=== PATIENT | male | born 1945 | race Caucasian/White ===

== ENCOUNTER → 2017-03-14 | Outpatient (CLI) | payer MEDICARE, OTHER ==
[2017-03-14 14:08] LABS: Basophils # (A) 0.1 k/uL (0-0.2); Basophils % (A) 1 %; CH 30.9; CHCM 33.2; Eosinophils # (A) 0.3 k/uL (0-0.7); Eosinophils % (A) 3 %; HCT 48.2 % (39.0-53.0); HDW 2.63; HGB 15.7 gm/dL (13.0-17.5); Luc # (Auto) 0.18; Luc % (Auto) 2; Lymphocytes # (A) 1.7 k/uL (1.0-4.8); Lymphocytes % (A) 16 %; MCH 30.3 pg (25.0-35.0); MCHC 32.5 g/dL (31.0-37.0); MCV 93.3 fL (80.0-100.0); Mean Platelet Volume 7.1; Monocytes # (A) 0.6 k/uL (0-1.0); Monocytes % (A) 5 %; Neutrophils # (A) 7.9 k/uL (1.3-7.7); Neutrophils % (A) 73 %; RBC 5.17 m/uL (4.30-5.90); RDW 14.7 % (11.5-15.5); WBC 10.8 k/uL (3.8-10.6); WBC (Perox) 10.38
[2017-03-14 14:17] LABS: ALT 43 U/L (21-72); AST 22 U/L (17-59); C Reactive Protein <5.0 mg/L (<10.0); Cholesterol 110 mg/dL (<200); Creatine Kinase 55 U/L (55-170); HDL Cholesterol 65 mg/dL (40-60); Non-African American GFR(MDRD) >60 (>60 ml/min/1.73 sqM); Triglycerides 53 mg/dL (<150)
[2017-03-14 15:25] LABS: Erythrocyte Sedimentation Rate 8 mm/hr (0-15)
== END | disposition home or self-care (01) ==
LOC: LABWHC1 13:48
PROVIDERS: ATTEND Internal Medicine Rheumatology
DX: M06.9 Rheumatoid arthritis, unspecified (principal); E78.5 Hyperlipidemia, unspecified
CPT/HCPCS: 36415; 80061; 82550; 82565; 84450; 84460; 85025; 85652; 86140

== ENCOUNTER 2017-04-21 13:51 | Emergency (ER) | payer MEDICARE, OTHER ==
[2017-04-21] MEDS ORDERED: SODIUM CHLORIDE 0.9% 500 ML IV ONE (14:14)
--- NOTE | 2017-04-21 14:16 | ED ---
General Adult HPI - General Chief complaint: Altered Mental Status Stated complaint: Confusion/Weakness Time Seen by Provider: 04/21/17 14:00 Source: patient, family, RN notes reviewed Mode of arrival: wheelchair Limitations: no limitations - History of Present Illness Initial comments: This is a 71-year-old male who presents emergency Department with a past medical history significant for mini strokes. Patient comes in today because his states he has had forgetful over the last hour. Patient woke up at 1 PM and his asked him questions about 30 to do today he did not know what they're very do and then asked him questions about what they did yesterday and he couldn't remember. Patient currently can remember everything about yesterday and today. states there was no slurred speech that was no facial droop there was no focal weakness and he did not complain of any numbness. states he ambulated normally. Patient denies any pain or symptoms patient states he feels completely fine at this time. Patient denies headache patient denies numbness weakness. Patient denies chest pain palpitations difficulty breathing or shortness of breath per patient denies any recent fever chills or cough. Patient denies abdominal pain patient denies nausea vomiting diarrhea. Patient denies any back pain. Patient denies any recent injury or trauma. - Related Data Home Medications Medication Instructions Recorded Confirmed ALPRAZolam [Xanax] 0.25 mg PO DAILY PRN 04/21/17 04/21/17 Apixaban [Eliquis] 5 mg PO Q12H 04/21/17 04/21/17 Aspirin EC [Ecotrin Low Dose] 81 mg PO DAILY 04/21/17 04/21/17 Atorvastatin Calcium [Lipitor] 80 mg PO DAILY 04/21/17 04/21/17 DULoxetine HCL [Cymbalta] 60 mg PO DAILY 04/21/17 04/21/17 EPINEPHrine [Epipen 2-Dhaval] 0.3 mg IM ONCE PRN 04/21/17 04/21/17 Esomeprazole Magnesium [NexIUM] 40 mg PO DAILY 04/21/17 04/21/17 Ezetimibe [Zetia] 10 mg PO HS 04/21/17 04/21/17 Folic Acid 0.8 mg PO DAILY 04/21/17 04/21/17 Levothyroxine Sodium [Synthroid] 150 mcg PO DAILY 04/21/17 04/21/17 Methotrexate Sodium [Methotrexate] 7.5 mg PO TU 04/21/17 04/21/17 Metoprolol Tartrate [Lopressor] 25 mg PO HS 04/21/17 04/21/17 Montelukast [Singulair] 10 mg PO DAILY 04/21/17 04/21/17 Allergies Allergy/AdvReac Type Severity Reaction Status Date / Time etodolac Allergy Rash/Hives Verified 04/21/17 14:42 moxifloxacin [From Avelox] Allergy Rash/Hives Verified 04/21/17 14:42 Penicillins Allergy Rash/Hives Verified 04/21/17 14:42 lisinopril AdvReac Severe Verified 04/21/17 14:42 Decrease In Blood Pressure Review of Systems ROS Statement: Those systems with pertinent positive or pertinent negative responses have been documented in the HPI. ROS Other: All systems not noted in ROS Statement are negative. Past Medical History Past Medical History: Asthma, CVA/TIA, Hyperlipidemia, Hypertension, Osteoarthritis (OA), Thyroid Disorder History of Any Multi-Drug Resistant Organisms: None Reported Past Surgical History: Appendectomy, Orthopedic Surgery Past Psychological History: Anxiety Smoking Status: Never smoker Past Alcohol Use History: Occasional Past Drug Use History: None Reported General Exam - General Exam Comments Initial Comments: GENERAL: Patient is well-developed and well-nourished. Patient is nontoxic and well- hydrated and is in no acute distress. ENT: Neck is soft and supple. No significant lymphadenopathy is noted. Oropharynx is clear. Moist mucous membranes. Neck has full range of motion without eliciting any pain. EYES: The sclera were anicteric and conjunctiva were pink and moist. Extraocular movements were intact and pupils were equal round and reactive to light. Eyelids were unremarkable. PULMONARY: Unlabored respirations. Good breath sounds bilaterally. No audible rales rhonchi or wheezing was noted. CARDIOVASCULAR: There is a regular rate and rhythm without any murmurs gallops or rubs. ABDOMEN: Soft and nontender with normal bowel sounds. No palpable organomegaly was noted. There is no palpable pulsatile mass. SKIN: Skin is clear with no lesions or rashes and otherwise unremarkable. NEUROLOGIC: Patient is alert and oriented x3. Cranial nerves II through XII are grossly intact. Motor and sensory are also intact. Normal speech, volume and content. Symmetrical smile. MUSCULOSKELETAL: Normal extremities with adequate strength and full range of motion. No lower extremity swelling or edema. No calf tenderness. LYMPHATICS: No significant lymphadenopathy is noted PSYCHIATRIC: Normal psychiatric evaluation. Normal interpersonal interactions appears functionally intact in deals appropriately with others. No signs of depression. No signs of anxiety. Limitations: no limitations Course Vital Signs 04/21/17 04/21/17 04/21/17 13:54 14:20 15:00 Temperature 97.6 F 97.7 F 97.7 F Pulse Rate 68 73 64 Respiratory 18 16 16 Rate Blood Pressure 181/107 153/106 195/90 O2 Sat by Pulse 93 L 90 L 96 Oximetry 04/21/17 16:00 Temperature 97.8 F Pulse Rate 64 Respiratory 16 Rate Blood Pressure 156/93 O2 Sat by Pulse 95 Oximetry Medical Decision Making - Medical Decision Making EKG shows him at 66 bpm NC interval is 130 QRS is 90 QT interval 418 QTC is 438. Patient's EKG shows no ST segment elevation or depression no T-wave abnormalities are noted. CT of the brain shows no acute abnormality - Lab Data Result diagrams: 04/21/17 14:20 04/21/17 14:20 Lab Results 04/21/17 04/21/17 04/21/17 Range/Units 14:20 14:20 14:20 WBC 10.9 H (3.8-10.6) k/uL RBC 5.82 (4.30-5.90) m/uL Hgb 17.5 (13.0-17.5) gm/dL Hct 53.7 H (39.0-53.0) % MCV 92.3 (80.0-100.0) fL MCH 30.1 (25.0-35.0) pg MCHC 32.6 (31.0-37.0) g/dL RDW 15.9 H (11.5-15.5) % Plt Count 241 (150-450) k/uL Neutrophils % 69 % Lymphocytes % 19 % Monocytes % 5 % Eosinophils % 3 % Basophils % 1 % Neutrophils # 7.5 (1.3-7.7) k/uL Lymphocytes # 2.1 (1.0-4.8) k/uL Monocytes # 0.6 (0-1.0) k/uL Eosinophils # 0.4 (0-0.7) k/uL Basophils # 0.1 (0-0.2) k/uL PT (9.0-12.0) sec INR (<1.2) APTT (22.0-30.0) sec Sodium 139 (137-145) mmol/L Potassium 4.3 (3.5-5.1) mmol/L Chloride 105 (98-107) mmol/L Carbon Dioxide 25 (22-30) mmol/L Anion Gap 9 mmol/L BUN 14 (9-20) mg/dL Creatinine 1.00 (0.66-1.25) mg/dL Est GFR (MDRD) Af Amer >60 (>60 ml/min/1.73 sqM) Est GFR (MDRD) Non-Af >60 (>60 ml/min/1.73 sqM) Glucose 109 H (74-99) mg/dL POC Glucose (mg/dL) (75-99) mg/dL POC Glu Extract Operator ID Calcium 9.1 (8.4-10.2) mg/dL Total Bilirubin 0.7 (0.2-1.3) mg/dL AST 28 (17-59) U/L ALT 47 (21-72) U/L Alkaline Phosphatase 86 (38-126) U/L Total Creatine Kinase 47 L (55-170) U/L CK-MB (CK-2) 1.7 (0.0-2.4) ng/mL CK-MB (CK-2) Rel Index 3.6 Troponin I <0.012 (0.000-0.034) ng/mL Total Protein 6.4 (6.3-8.2) g/dL Albumin 3.6 (3.5-5.0) g/dL Urine Color Urine Appearance (Clear) Urine pH (5.0-8.0) Ur Specific [place] (1.001-1.035) Urine Protein (Negative) Urine Glucose (UA) (Negative) Urine Ketones (Negative) Urine Blood (Negative) Urine Nitrite (Negative) Urine Bilirubin (Negative) Urine Urobilinogen (<2.0) mg/dL Ur Leukocyte Esterase (Negative) Urine RBC (0-5) /hpf Urine WBC (0-5) /hpf Amorphous Sediment (None) /hpf Urine Mucus (None) /hpf Urine Opiates Screen (NotDetected) Ur Oxycodone Screen (NotDetected) Urine Methadone Screen (NotDetected) Ur Propoxyphene Screen (NotDetected) Ur Barbiturates Screen (NotDetected) U Tricyclic Antidepress (NotDetected) Ur Phencyclidine Scrn (NotDetected) Ur Amphetamines Screen (NotDetected) U Methamphetamines Scrn (NotDetected) U Benzodiazepines Scrn (NotDetected) Urine Cocaine Screen (NotDetected) U Marijuana (THC) Screen (NotDetected) 04/21/17 04/21/17 04/21/17 Range/Units 14:20 14:27 16:05 WBC (3.8-10.6) k/uL RBC (4.30-5.90) m/uL Hgb (13.0-17.5) gm/dL Hct (39.0-53.0) % MCV (80.0-100.0) fL MCH (25.0-35.0) pg MCHC (31.0-37.0) g/dL RDW (11.5-15.5) % Plt Count (150-450) k/uL Neutrophils % % Lymphocytes % % Monocytes % % Eosinophils % % Basophils % % Neutrophils # (1.3-7.7) k/uL Lymphocytes # (1.0-4.8) k/uL Monocytes # (0-1.0) k/uL Eosinophils # (0-0.7) k/uL Basophils # (0-0.2) k/uL PT 10.9 (9.0-12.0) sec INR 1.1 (<1.2) APTT 23.4 (22.0-30.0) sec Sodium (137-145) mmol/L Potassium (3.5-5.1) mmol/L Chloride (98-107) mmol/L Carbon Dioxide (22-30) mmol/L Anion Gap mmol/L BUN (9-20) mg/dL Creatinine (0.66-1.25) mg/dL Est GFR (MDRD) Af Amer (>60 ml/min/1.73 sqM) Est GFR (MDRD) Non-Af (>60 ml/min/1.73 sqM) Glucose (74-99) mg/dL POC Glucose (mg/dL) 105 H (75-99) mg/dL POC Glu Extract Operator ID Zackery Hinds Calcium (8.4-10.2) mg/dL Total Bilirubin (0.2-1.3) mg/dL AST (17-59) U/L ALT (21-72) U/L Alkaline Phosphatase (38-126) U/L Total Creatine Kinase (55-170) U/L CK-MB (CK-2) (0.0-2.4) ng/mL CK-MB (CK-2) Rel Index Troponin I (0.000-0.034) ng/mL Total Protein (6.3-8.2) g/dL Albumin (3.5-5.0) g/dL Urine Color Yellow Urine Appearance Clear (Clear) Urine pH 6.5 (5.0-8.0) Ur Specific [place] 1.012 (1.001-1.035) Urine Protein Negative (Negative) Urine Glucose (UA) Negative (Negative) Urine Ketones Negative (Negative) Urine Blood Moderate H (Negative) Urine Nitrite Negative (Negative) Urine Bilirubin Negative (Negative) Urine Urobilinogen <2.0 (<2.0) mg/dL Ur Leukocyte Esterase Negative (Negative) Urine RBC >182 H (0-5) /hpf Urine WBC 2 (0-5) /hpf Amorphous Sediment Rare H (None) /hpf Urine Mucus Rare H (None) /hpf Urine Opiates Screen Not Detected (NotDetected) Ur Oxycodone Screen Not Detected (NotDetected) Urine Methadone Screen Not Detected (NotDetected) Ur Propoxyphene Screen Not Detected (NotDetected) Ur Barbiturates Screen Not Detected (NotDetected) U Tricyclic Antidepress Not Detected (NotDetected) Ur Phencyclidine Scrn Not Detected (NotDetected) Ur Amphetamines Screen Not Detected (NotDetected) U Methamphetamines Scrn Not Detected (NotDetected) U Benzodiazepines Scrn Not Detected (NotDetected) Urine Cocaine Screen Not Detected (NotDetected) U Marijuana (THC) Screen Not Detected (NotDetected) Disposition Clinical Impression: Transient global amnesia Disposition: HOME SELF-CARE Condition: Good Instructions: Transient Global Amnesia (ED) Referrals: Abdi Corona MD [Primary Care Provider] - 1-2 days Time of Disposition: 16:40
[2017-04-21 14:26] VITALS: RESP 16
[2017-04-21 14:29] LABS: Glucose,Whole Blood 105 mg/dL (75-99)
[2017-04-21 14:41] LABS: Basophils # (A) 0.1 k/uL (0-0.2); Basophils % (A) 1 %; CH 31.6; CHCM 34.4; Eosinophils # (A) 0.4 k/uL (0-0.7); Eosinophils % (A) 3 %; HCT 53.7 % (39.0-53.0); HDW 2.54; HGB 17.5 gm/dL (13.0-17.5); Luc # (Auto) 0.18; Luc % (Auto) 2; Lymphocytes # (A) 2.1 k/uL (1.0-4.8); Lymphocytes % (A) 19 %; MCH 30.1 pg (25.0-35.0); MCHC 32.6 g/dL (31.0-37.0); MCV 92.3 fL (80.0-100.0); Mean Platelet Volume 7.7; Monocytes # (A) 0.6 k/uL (0-1.0); Monocytes % (A) 5 %; Neutrophils # (A) 7.5 k/uL (1.3-7.7); Neutrophils % (A) 69 %; RBC 5.82 m/uL (4.30-5.90); RDW 15.9 % (11.5-15.5); WBC 10.9 k/uL (3.8-10.6); WBC (Perox) 10.54
[2017-04-21 14:45] LABS: Partial Thromboplastin Time 23.4 sec (22.0-30.0)
[2017-04-21 14:49] LABS: INR 1.1 (<1.2); Prothrombin Time 10.9 sec (9.0-12.0)
[2017-04-21 14:53] LABS: ALT 47 U/L (21-72); AST 28 U/L (17-59); Alkaline Phosphatase 86 U/L (38-126); Anion Gap 9 mmol/L; Blood Urea Nitrogen 14 mg/dL (9-20); Calcium 9.1 mg/dL (8.4-10.2); Carbon Dioxide 25 mmol/L (22-30); Chloride 105 mmol/L (98-107); Creatine Kinase 47 U/L (55-170); Glucose 109 mg/dL (74-99); Non-African American GFR(MDRD) >60 (>60 ml/min/1.73 sqM); Potassium 4.3 mmol/L (3.5-5.1); Sodium 139 mmol/L (137-145); Total Bilirubin 0.7 mg/dL (0.2-1.3); Total Protein 6.4 g/dL (6.3-8.2)
[2017-04-21 15:05] LABS: Creatine Kinase MB 1.7 ng/mL (0.0-2.4); Troponin I <0.012 ng/mL (0.000-0.034)
--- NOTE | 2017-04-21 15:08 | CT ---
EXAMINATION TYPE: CT brain wo con DATE OF EXAM: 04/21/2017 COMPARISON: NONE INDICATION: confusion DLP: 1085 mGycm, Automated exposure control for dose reduction was used. CONTRAST: None CT of the brain is performed utilizing 3 mm thick sections through the posterior fossa and 3 mm thick sections through the remaining calvarium. Study is performed within 24 hours of arrival to the hosp [facility]. No abnormal hyperdensity is present to suggest an acute intracranial hemorrhage. No mass lesion is evident. No acute infarcts are evident. Ventricles and sulci are appropriate for the patient age. Paranasal sinuses and mastoid air cells within the [id number] are clear. IMPRESSIONS: 1. Normal CT Brain
--- NOTE | 2017-04-21 15:19 | XR ---
EXAMINATION TYPE: XR chest 2V DATE OF EXAM: 04/21/2017 COMPARISON: NONE INDICATION: Altered mental status TECHNIQUE: Frontal and lateral views of the chest are obtained. FINDINGS: The heart size is normal. The pulmonary vasculature is normal. The lungs are clear. IMPRESSION: 1. No acute pulmonary process.
[2017-04-21 16:24] LABS: Amorphous Sediment,Urine Rare /hpf; Appearance,Urine Clear (Clear); Bilirubin,Urine Negative (Negative); Glucose,Urine (UA) Negative (Negative); Ketones,Urine Negative (Negative); Leukocyte Esterase,Urine Negative (Negative); Mucus,Urine Rare /hpf; Nitrite,Urine Negative (Negative); PH, Urine 6.5 (5.0-8.0); Particle Count 864; Protein,Urine Negative (Negative); RBC,Urine >182 /hpf (0-5); Specific Gravity,Urine 1.012 (1.001-1.035); UA Billing (MACRO vs. MICRO) MICRO; Urobilinogen,Urine <2.0 mg/dL (<2.0); WBC,Urine 2 /hpf (0-5)
[2017-04-21 16:59] VITALS: BP 175/94; PULSE 73; TEMP 97.6
== END 2017-04-21 16:50 | disposition home or self-care (01) ==
LOC: EC 13:51
DX: G45.4 Transient global amnesia (principal); J45.909 Unspecified asthma, uncomplicated; E78.5 Hyperlipidemia, unspecified; I10 Essential (primary) hypertension; M19.90 Unspecified osteoarthritis, unspecified site; E07.9 Disorder of thyroid, unspecified; F41.9 Anxiety disorder, unspecified; Z86.73 Personal history of transient ischemic attack (TIA), and cerebral infarction without residual deficits; Z79.01 Long term (current) use of anticoagulants; Z79.82 Long term (current) use of aspirin; Z79.899 Other long term (current) drug therapy; Z88.0 Allergy status to penicillin; Z88.1 Allergy status to other antibiotic agents; Z88.8 Allergy status to other drugs, medicaments and biological substances
CPT/HCPCS: 36415; 70450; 71020; 80053; 80306; 81001; 82550; 82553; 84484; 85025; 85610; 85730; 93005; 96360; 99285

== ENCOUNTER 2017-05-17 09:44 | Inpatient (IN) | payer MEDICARE, OTHER ==
[2017-05-17] MEDS ORDERED: ACETAMINOPHEN TAB 325 MG TAB PO PRN (11:40)
[2017-05-17] MEDS ORDERED: ONDANSETRON 4 MG/2 ML VIAL IVP PRN (11:40)
[2017-05-17] MEDS ORDERED: methylPREDNISolone SOD SUCCI 125 MG/2 ML VIAL IV SCH (12:00)
[2017-05-17] MEDS ORDERED: EPINEPHrine (Auto Inject) 0.3 MG/0.3 ML SYRINGE IM PRN (12:40)
[2017-05-17] MEDS ORDERED: ALBUTEROL NEBULIZED 2.5 MG/3 ML INHALATION PRN (12:40)
[2017-05-17] MEDS: LEVALBUTEROL NEB 1.25 MG/3 ML AMP INHALATION SCH ×3 (13:28→20:16)
--- NOTE | 2017-05-17 13:28 | XR ---
EXAMINATION TYPE: XR chest 2V DATE OF EXAM: 05/17/2017 COMPARISON: 05/17/2017 TECHNIQUE: PA and lateral views submitted. HISTORY: Follow-up pneumonia FINDINGS: The lungs are clear and there is no pneumothorax, pleural effusion, or focal pneumonia. Heart size stable. No failure. Biapical pleural thickening. IMPRESSION: 1. No acute process.
[2017-05-17 13:49] LABS: Basophils # (A) 0.2 k/uL (0-0.2); Basophils % (A) 2 %; CH 30.9; CHCM 31.7; Eosinophils # (A) 0.5 k/uL (0-0.7); Eosinophils % (A) 5 %; HCT 51.5 % (39.0-53.0); HDW 2.46; HGB 16.3 gm/dL (13.0-17.5); Luc # (Auto) 0.11; Luc % (Auto) 1; Lymphocytes # (A) 2.6 k/uL (1.0-4.8); Lymphocytes % (A) 26 %; MCH 30.9 pg (25.0-35.0); MCHC 31.7 g/dL (31.0-37.0); MCV 97.7 fL (80.0-100.0); Macrocytosis Slight; Mean Platelet Volume 7.1; Monocytes # (A) 0.5 k/uL (0-1.0); Monocytes % (A) 5 %; Neutrophils # (A) 6.3 k/uL (1.3-7.7); Neutrophils % (A) 62 %; RBC 5.27 m/uL (4.30-5.90); RDW 15.8 % (11.5-15.5); WBC 10.2 k/uL (3.8-10.6); WBC (Perox) 10.18
[2017-05-17 13:50] LABS: Calcium 9.8 mg/dL (8.4-10.2); Potassium 4.2 mmol/L (3.5-5.1); Total Bilirubin 0.9 mg/dL (0.2-1.3); Total Protein 6.5 g/dL (6.3-8.2)
--- NOTE | 2017-05-17 14:14 | US ---
EXAMINATION TYPE: US kidneys/renal and bladder DATE OF EXAM: 05/17/2017 COMPARISON: NONE CLINICAL HISTORY: Hematuria. EXAM MEASUREMENTS: Right Kidney: 11.4 x 5.8 x 5.8 cm Left Kidney: 11.1 x 5.2 x 6.0 cm Right Kidney: lateral cystic lesion seen = 1.0 x 1.3 x 0.9 cm. Hyperechoic cortical lesion, nonvascu lar = 0.6 x 0.8 x 0.6 cm Left Kidney: Echogenic focus seen with shadow in upper pole = 0.7 cm Bladder: Moderately distended Left Jet seen IMPRESSION: Nonobstructing 7 mm left renal calculus. The lesions involving the right kidney are indeterminate and could be correlated with CT scan for further evaluation. One of which may represent small angiomyoli andrez. Bladder is incompletely distended. Correlate for mild wall thickening and cystitis.
[2017-05-17] MEDS: APIXABAN 5 MG TAB PO SCH ×2 (14:20→21:03)
[2017-05-17] MEDS: AZITHROMYCIN 500 MG in SODIUM CHLORIDE 0.9% 250 ML IVPB SCH (14:21)
[2017-05-17] MEDS: 0.9% NACL WITH KCL 20 MEQ/L 1,000 ML IV SCH ×2 (14:24→18:12)
--- NOTE | 2017-05-17 17:02 | P.HPIM ---
History of Present Illness H&P Date: 05/17/17 Chief Complaint: Shortness of breath This is a 71 year old male who was directly admitted to the hospital on [address] Sandoval office for persistent asthma and pneumonia. He states he was seen in office on Saturday for shortness of breath, wheezing, and a "rattling " in his chest. He states that his symptoms did not resolve and presented back the office today. The patient was admitted for persistent asthma and pneumonia. Consults were placed for pulmonary to see the patient. The patient has a history of osteoarthritis, hypertension, hyperlipidemia, fibromyalgia, chronic lower back pain, asthma. He is a former smoker. The patient is ordering IV fluid hydration with 0.9 NS with 20KCL at 150cc/hr. He is receiving Solu-Medrol 80 mg IV push every six hours. He was started on Zithromax 500 mg IV piggyback every 24 hours and Rocephin 1 g IV piggyback every 24 hours. He has scheduled breathing treatment of Xopenex ordered. He is on a regular diet. Blood work and chest x-ray will be completed. The patient also states he had hematuria found on a urine sample at Dr Sandoval office. He has a script for a kidney ultrasound which the patient is able to complete during his admission to the hospital per the ultrasound department. Upon assessment and evaluation, the patient does not appear to be in any acute distress. His is at the bedside. He states he feels like his lungs are "junky" today. The patient does sound coarse throughout with some scattered wheezing. His oxygen saturation was 90% on room air. Spoke with nursing and patient will be placed on a nasal cannula. He denies any chest pain or pressure. He states he is tolerating food and fluids without nausea or vomiting. His blood pressure has been stable. He is afebrile at this time. Review of Systems Those systems with pertinent negative or pertinent positive responses have been documented in the HPI Past Medical History Past Medical History: Asthma, CVA/TIA, Hyperlipidemia, Hypertension, Osteoarthritis (OA), Pneumonia, Thyroid Disorder Additional Past Medical History / Comment(s): Caratid artery disease-had 2 TIAs during right caratid surgery plaque removal and then the artery occludded with a blood clot, L caratid artery has 30% occlusion, R face/ear cellulitis, hypothyroid, generalized arthritis, chronic low back pain with vertebral fracture, pericarditis in the 1970s History of Any Multi-Drug Resistant Organisms: None Reported Past Surgical History: Appendectomy, Orthopedic Surgery Additional Past Surgical History / Comment(s): R caratid endartectomy, R shoulder arthroscopy, L hand middle finger sx, colonoscopies, bilateral cataract removal with lens implants. Additional Past Anesthesia/Blood Transfusion Reaction / Comment(s): Blood pressure dropped during R caratid artery surgery-surgery was aborted and done 2 days later when pt's blood pressure stabilized. Smoking Status: Former smoker - Past Family History Mother Family Medical History: Hypertension, Osteoarthritis (OA) Additional Family Medical History / Comment(s): Mother is 92 yrs old. Father Family Medical History: CVA/TIA, Myocardial Infarction (CO) Additional Family Medical History / Comment(s): Father had a CVA and multiple MIs. He from a CO at the age of 88yrs. Medications and Allergies Home Medications Medication Instructions Recorded Confirmed Type ALPRAZolam [Xanax] 0.25 mg PO DAILY PRN 04/21/17 05/17/17 History Apixaban [Eliquis] 5 mg PO Q12H 04/21/17 05/17/17 History Aspirin EC [Ecotrin Low Dose] 81 mg PO DAILY 04/21/17 05/17/17 History Atorvastatin Calcium [Lipitor] 80 mg PO DAILY 04/21/17 05/17/17 History DULoxetine HCL [Cymbalta] 60 mg PO QAM 04/21/17 05/17/17 History EPINEPHrine [Epipen 2-Dhaval] 0.3 mg IM ONCE PRN 04/21/17 05/17/17 History Esomeprazole Magnesium [NexIUM] 40 mg PO DAILY 04/21/17 05/17/17 History Ezetimibe [Zetia] 10 mg PO HS 04/21/17 05/17/17 History Folic Acid 0.8 mg PO DAILY 04/21/17 05/17/17 History Levothyroxine Sodium [Synthroid] 150 mcg PO DAILY 04/21/17 05/17/17 History Methotrexate Sodium [Methotrexate] 7.5 mg PO TU 04/21/17 05/17/17 History Metoprolol Tartrate [Lopressor] 25 mg PO DAILY 04/21/17 05/17/17 History Montelukast [Singulair] 10 mg PO DAILY 04/21/17 05/17/17 History DULoxetine HCL [Cymbalta] 30 mg PO HS 05/17/17 05/17/17 History Levalbuterol Nebulized [Xopenex 1.25 mg INHALATION RT-TID PRN 05/17/17 05/17/17 History Nebulized] Levalbuterol Tartrate [Xopenex Hfa 1 - 2 puff INHALATION RT-QID PRN 05/17/17 History Inhaler] Tamsulosin HCl [Flomax] 0.4 mg PO DAILY 05/17/17 05/17/17 History Allergies Allergy/AdvReac Type Severity Reaction Status Date / Time etodolac Allergy Rash/Hives Verified 05/17/17 12:14 moxifloxacin [From Avelox] Allergy Rash/Hives Verified 05/17/17 12:14 Penicillins Allergy Rash/Hives Verified 05/17/17 12:14 lisinopril AdvReac Severe Verified 05/17/17 12:14 Decrease In Blood Pressure Physical Exam Vitals: Vital Signs Temp Pulse Pulse Resp BP Pulse Ox 05/17/17 16:03 88 05/17/17 15:58 88 91 L 05/17/17 15:00 98.1 F 70 16 120/74 92 L 05/17/17 12:15 75 16 05/17/17 11:56 97.3 F L 75 16 113/76 91 L Intake and Output 05/17/17 05/17/17 05/17/17 06:59 14:59 22:59 Intake Total 780 Balance 780 Intake: Oral 780 Other: Voiding Method Toilet # Voids 1 Weight 87.5 kg Patient Weight 05/18/17 06:59 Weight 87.5 kg GENERAL: Alert and oriented. Pleasant and cooperative. at the bedside. RESPIRATORY: Lung sounds are coursed throughout with scattered wheezing No use of accessory muscles. Patients oxygen saturation is 90%. Nasal cannula to be applied CARDIOVASCULAR: S1 and S2 noted. No JVD noted. EXTREMITIES: No edema noted. Palpable pedal pulses +2. ABDOMEN: No distention noted. Abdomen soft and round. Normal active bowel sounds auscultated 4 quadrants. No pain or tenderness noted upon palpation. Results CBC & Chem 7: 05/17/17 13:23 05/17/17 13:23 Labs: Abnormal Lab Results - Last 24 Hours (Table) 05/17/17 05/17/17 Range/Units 13:23 13:23 RDW 15.8 H (11.5-15.5) % Creatinine 1.69 H (0.66-1.25) mg/dL Glucose 101 H (74-99) mg/dL ALT 78 H (21-72) U/L Thrombosis Risk Factor Assmnt - Choose All That Apply Any of the Below Risk Factors Present?: Yes Each Factor Represents 1 point: Obesity (BMI >25), Serious lung disease incl. pneumonia (< 1month) Other Risk Factors: Yes Each Risk Factor Represents 2 Points: Age 61-74 years Other congenital or acquired thrombophilia - If yes, enter type in comment: No Thrombosis Risk Factor Assessment Total Risk Factor Score: 4 Thrombosis Risk Factor Assessment Level: Moderate Risk Assessment and Plan Plan: ASSESSMENT: -Pneumonia, present on admission, sputum culture ordered -Acute on chronic asthma -Shortness of breath and coughing, related to pneumonia and asthma -Hematuria, present on admission, found on recent urinalysis in the outpatient setting, ultrasound pending -Acute kidney injury, present on admission, creatinine on admission is 1.69. Patients baseline ranges from 0.8-1.0 -Nicotine dependence in remission. Patient is a former cigarette smoker. -History of TIA -History of right carotid endarterectomy -Essential Hypertension -Hyperlipidemia -Hypothyroidism -Osteoarthritis -Obesity, BMI 31.1 PLAN: -Pulmonary on consult. Appreciate recommendations and input -Continue breathing treatments -Continue IV steroids: 80mg every 6 hours -Chest x-ray and labs in a.m. -Continue IV antibiotics: Azithromycin and ceftriaxone -Await sputum culture results -Continue IV fluid at 150 mL an hour -Monitor BUN/Cr. Repeat labs in the AM. If creatinine remains elevated, consider nephrology consult -Resume home meds as appropriate -Monitor labs -GI prophylaxis: Protonix 40 mg by mouth daily -DVT prophylaxis: Patient takes Eliquis -Monitor vital signs and address as appropriate The above impression and plan of care have been discussed and directed by signing physician. Roberta Moreno, nurse practitioner, acting as scribe for signing physician.
--- NOTE | 2017-05-17 17:50 | P.CNPUL ---
History of Present Illness Consult date: 05/17/17 Requesting physician: Abdi Corona Reason for consult: pneumonia Chief complaint: Nonproductive cough and shortness of breath. History of present illness: This is a 71-year-old white male was primarily a patient of Dr. Menendez, patient is known to have history of asthma, used to be a smoker many years ago, but quit. Patient was diagnosed as having intermittent episodes of asthma exacerbations by his primary care physician. Maintained on bronchodilators, also maintained on an nebulizer machine at home. Patient is not prednisone dependent. He saw Dr. Corona today with symptoms of cough, unable to clear his sputum, and he has intermittent rattling sensation in the chest and wheezing. Apparently the patient has been on some sort of treatment on outpatient basis, but was not getting much improvement, hence Dr. Corona decided to admit him today. Patient did have diffuse rhonchi and wheezes on physical examination, mostly on the right side, and his chest x-ray although read normal by the radiologist, is strongly suspicious for a limited infiltrate in the right middle lobe. Patient denies any fever, no chills, no hemoptysis, no chest pain. His oxygen saturation on room air was marginal between 91-92%. After evaluating the patient, I recommended that we keep the patient on his present antibiotics including Rocephin and Zithromax will keep him on Xopenex, and I will also recommend Solu-Medrol 60 mg IV push every 6 hours. If the patient doesn't improve much over the next couple of days, bronchoscopy will have to be considered. Labs were noted to be relatively unremarkable except for elevated creatinine of 1.69. Patient denies any headaches no blurred vision no dizziness. No chest pain but he feels a rattling sensation in the chest, no nausea no vomiting no melena no hematemesis is no dysuria and no frequency no urgency. No aches and pains. Review of Systems 14 point review of systems were obtained, please refer to pertinent positives in the HPI otherwise remaining systems are negative. Past Medical History Past Medical History: Asthma, CVA/TIA, Hyperlipidemia, Hypertension, Osteoarthritis (OA), Pneumonia, Thyroid Disorder Additional Past Medical History / Comment(s): Caratid artery disease-had 2 TIAs during right caratid surgery plaque removal and then the artery occludded with a blood clot, L caratid artery has 30% occlusion, R face/ear cellulitis, hypothyroid, generalized arthritis, chronic low back pain with vertebral fracture, pericarditis in the 1970s History of Any Multi-Drug Resistant Organisms: None Reported Past Surgical History: Appendectomy, Orthopedic Surgery Additional Past Surgical History / Comment(s): R caratid endartectomy, R shoulder arthroscopy, L hand middle finger sx, colonoscopies, bilateral cataract removal with lens implants. Additional Past Anesthesia/Blood Transfusion Reaction / Comment(s): Blood pressure dropped during R caratid artery surgery-surgery was aborted and done 2 days later when pt's blood pressure stabilized. Smoking Status: Former smoker - Past Family History Mother Family Medical History: Hypertension, Osteoarthritis (OA) Additional Family Medical History / Comment(s): Mother is 92 yrs old. Father Family Medical History: CVA/TIA, Myocardial Infarction (ID) Additional Family Medical History / Comment(s): Father had a CVA and multiple MIs. He from a ID at the age of 88yrs. Medications and Allergies Home Medications Medication Instructions Recorded Confirmed Type ALPRAZolam [Xanax] 0.25 mg PO DAILY PRN 04/21/17 05/17/17 History Apixaban [Eliquis] 5 mg PO Q12H 04/21/17 05/17/17 History Aspirin EC [Ecotrin Low Dose] 81 mg PO DAILY 04/21/17 05/17/17 History Atorvastatin Calcium [Lipitor] 80 mg PO DAILY 04/21/17 05/17/17 History DULoxetine HCL [Cymbalta] 60 mg PO QAM 04/21/17 05/17/17 History EPINEPHrine [Epipen 2-Dhaval] 0.3 mg IM ONCE PRN 04/21/17 05/17/17 History Esomeprazole Magnesium [NexIUM] 40 mg PO DAILY 04/21/17 05/17/17 History Ezetimibe [Zetia] 10 mg PO HS 04/21/17 05/17/17 History Folic Acid 0.8 mg PO DAILY 04/21/17 05/17/17 History Levothyroxine Sodium [Synthroid] 150 mcg PO DAILY 04/21/17 05/17/17 History Methotrexate Sodium [Methotrexate] 7.5 mg PO TU 04/21/17 05/17/17 History Metoprolol Tartrate [Lopressor] 25 mg PO DAILY 04/21/17 05/17/17 History Montelukast [Singulair] 10 mg PO DAILY 04/21/17 05/17/17 History DULoxetine HCL [Cymbalta] 30 mg PO HS 05/17/17 05/17/17 History Levalbuterol Nebulized [Xopenex 1.25 mg INHALATION RT-TID PRN 05/17/17 05/17/17 History Nebulized] Levalbuterol Tartrate [Xopenex Hfa 1 - 2 puff INHALATION RT-QID PRN 05/17/17 History Inhaler] Tamsulosin HCl [Flomax] 0.4 mg PO DAILY 05/17/17 05/17/17 History Allergies Allergy/AdvReac Type Severity Reaction Status Date / Time etodolac Allergy Rash/Hives Verified 05/17/17 12:14 moxifloxacin [From Avelox] Allergy Rash/Hives Verified 05/17/17 12:14 Penicillins Allergy Rash/Hives Verified 05/17/17 12:14 lisinopril AdvReac Severe Verified 05/17/17 12:14 Decrease In Blood Pressure Physical Exam Vitals: Vital Signs Temp Pulse Pulse Resp BP Pulse Ox 05/17/17 16:03 88 05/17/17 15:58 88 91 L 05/17/17 15:00 98.1 F 70 16 120/74 92 L 05/17/17 12:15 75 16 05/17/17 11:56 97.3 F L 75 16 113/76 91 L Intake and Output 05/17/17 05/17/17 05/17/17 06:59 14:59 22:59 Intake Total 780 Balance 780 Intake: Oral 780 Other: Voiding Method Toilet # Voids 1 Weight 87.5 kg Patient Weight 05/18/17 06:59 Weight 87.5 kg Physical Exam: Revealed a 71-year-old white male in no form of respiratory distress, comfortable in bed. Quite pleasant Eyes: PERRLA, EOMI, no icterus. Head: Normocephalic, atraumatic, HEENT:[Neck is supple.] [No neck masses.] [No thyromegaly.] [No JVD.] Throat is clear, mucous membranes are intact. Including mouth, nose, and throat. Chest: [Rhonchi and wheezes noted bilaterally more so on the right side and more so on forced expiratory maneuver..] Cardiac Exam: [Normal S1 and S2, no S3 gallop, no murmur.] Abdomen: [Soft, nontender, no megaly, no rebound, no guarding, normal bowel sounds.] Extremities: [No clubbing, no edema, no cyanosis Neurological Exam: [No focal neurologic deficit. Skin: No rashes, no ulcerations, no erythema. Psychiatric: Normal affect, normal mental status exam, appropriate mood. Results - Laboratory Findings CBC and BMP: 05/17/17 13:23 05/17/17 13:23 Abnormal lab findings: Abnormal Labs 05/17/17 05/17/17 13:23 13:23 RDW 15.8 H Creatinine 1.69 H Glucose 101 H ALT 78 H - Diagnostic Findings Chest x-ray: image reviewed (I suspect a limited the right middle lobe infiltrate as noted on the chest x-ray, apparently not appreciated by the radiologist, but I am more certain that there is a limited infiltrate in the right middle lobe.) Assessment and Plan Plan: Impression: 1 acute community-acquired right middle lobe pneumonia, limited infiltrate noted on the chest x-ray. 2 acute exacerbation of asthmatic bronchitis, patient used to be a smoker quit many years ago. 3 acute kidney injury, exact etiology is not clear, patient's baseline creatinine is 0.8-1.0 and today it is 1.69. Very well be related to nonsteroidal anti-inflammatory drugs, or other nephrotoxic drugs taken. 4 multiple comorbidities, previous history of TIA, previous right carotid endarterectomy, history of hypertension, history of hyperlipidemia, hypothyroidism, and osteoarthritis. Recommendation: Continue Rocephin and Zithromax, Solu-Medrol 60 mg IV push every 6 hours, Xopenex updrafts 4 times a day and when necessary, will add Atrovent 0.5 mg updrafts 4 times a day, add Symbicort add GI and DVT prophylaxis , will continue to follow. Monitor kidney status, consider nephrology consultation. Time with Patient: Greater than 30
[2017-05-17] MEDS: methylPREDNISolone SOD SUCCI 125 MG/2 ML VIAL IV SCH (18:12)
[2017-05-17] MEDS: IPRATROPIUM 0.5 MG/2.5 ML NEBU INHALATION SCH (20:14)
[2017-05-17] MEDS: SYMBICORT 160-4.5 MCG INHALER INHALATION SCH ×2 (20:15→20:26)
[2017-05-17] MEDS: DULoxetine HCL 30 MG CAPSULE.DR PO SCH (21:03)
[2017-05-17] MEDS: EZETIMIBE 10 MG TAB PO SCH (21:03)
[2017-05-17] MEDS: guaiFENesin 600 MG TABLET.ER PO SCH (21:04)
[2017-05-17] MEDS: ALPRAZolam 0.25 MG TAB PO PRN (21:06)
[2017-05-18] MEDS: 0.9% NACL WITH KCL 20 MEQ/L 1,000 ML IV SCH ×5 (00:07→22:09)
[2017-05-18] MEDS: methylPREDNISolone SOD SUCCI 125 MG/2 ML VIAL IV SCH ×5 (00:07→23:16)
[2017-05-18] MEDS: LEVOTHYROXINE 75 MCG TAB PO SCH (06:06)
[2017-05-18 07:27] LABS: Basophils % (A) 0 %; CH 30.7; Eosinophils % (A) 0 %; HCT 49.8 % (39.0-53.0); HDW 2.44; HGB 15.8 gm/dL (13.0-17.5); Luc # (Auto) 0.02; Luc % (Auto) 0; Lymphocytes # (A) 0.9 k/uL (1.0-4.8); Lymphocytes % (A) 9 %; MCH 30.5 pg (25.0-35.0); MCHC 31.7 g/dL (31.0-37.0); MCV 96.2 fL (80.0-100.0); Monocytes # (A) 0.2 k/uL (0-1.0); Monocytes % (A) 2 %; Neutrophils # (A) 8.9 k/uL (1.3-7.7); Neutrophils % (A) 89 %; RBC 5.17 m/uL (4.30-5.90); RDW 15.8 % (11.5-15.5); WBC (Perox) 10.41
[2017-05-18 07:47] LABS: ALT 84 U/L (21-72); AST 56 U/L (17-59); Alkaline Phosphatase 65 U/L (38-126); Anion Gap 10 mmol/L; Blood Urea Nitrogen 14 mg/dL (9-20); Calcium 8.7 mg/dL (8.4-10.2); Carbon Dioxide 22 mmol/L (22-30); Chloride 107 mmol/L (98-107); Glucose 169 mg/dL (74-99); Non-African American GFR(MDRD) 59 (>60 ml/min/1.73 sqM); Potassium 4.4 mmol/L (3.5-5.1); Sodium 139 mmol/L (137-145); Total Bilirubin 0.7 mg/dL (0.2-1.3); Total Protein 6.3 g/dL (6.3-8.2)
[2017-05-18] MEDS: MONTELUKAST 10 MG TAB PO SCH (07:53)
[2017-05-18] MEDS: ATORVASTATIN 80 MG TAB PO SCH (07:53)
[2017-05-18] MEDS: FOLIC ACID 1 MG TAB PO SCH (07:54)
[2017-05-18] MEDS: APIXABAN 5 MG TAB PO SCH ×2 (07:54→21:19)
[2017-05-18] MEDS: METOPROLOL TARTRATE 25 MG TAB PO SCH (07:54)
[2017-05-18] MEDS: guaiFENesin 600 MG TABLET.ER PO SCH ×2 (07:54→22:08)
[2017-05-18] MEDS: TAMSULOSIN 0.4 MG CAP.ER.24H PO SCH (07:54)
[2017-05-18] MEDS: DULoxetine HCL 60 MG CAPSULE.DR PO SCH (07:54)
[2017-05-18] MEDS: SYMBICORT 160-4.5 MCG INHALER INHALATION SCH ×3 (08:10→20:22)
[2017-05-18] MEDS: IPRATROPIUM 0.5 MG/2.5 ML NEBU INHALATION SCH ×4 (08:10→20:21)
[2017-05-18] MEDS: LEVALBUTEROL NEB 1.25 MG/3 ML AMP INHALATION SCH ×2 (08:10→12:14)
--- NOTE | 2017-05-18 08:44 | XR ---
EXAMINATION TYPE: XR chest 2V DATE OF EXAM: 05/18/2017 HISTORY: pneumonia. REFERENCE: Previous study dated 05/17/2017. FINDINGS: The lungs are overinflated. The heart is mildly enlarged. The lungs are clear. Pleural spaces are clear. IMPRESSION: 1. COPD. 2. MILD CARDIOMEGALY.
[2017-05-18] MEDS ORDERED: NON-FORMULARY DRUG (Esomeprazole Magnesium [Nexium] 40 MG) PO SCH (09:00)
[2017-05-18 11:57] LABS: Glucose,Whole Blood 327 mg/dL (75-99)
[2017-05-18] MEDS: PANTOPRAZOLE 40 MG TABLET PO SCH (12:25)
[2017-05-18] MEDS: AZITHROMYCIN 500 MG in SODIUM CHLORIDE 0.9% 250 ML IVPB SCH (12:25)
[2017-05-18] MEDS: ASPIRIN 81 MG PO SCH (12:25)
--- NOTE | 2017-05-18 12:26 | P.PN ---
Subjective Principal diagnosis: Right middle lobe pneumonia This is a 71-year-old white male was primarily a patient of Dr. Menendez, patient is known to have history of asthma, used to be a smoker many years ago, but quit. Patient was diagnosed as having intermittent episodes of asthma exacerbations by his primary care physician. Maintained on bronchodilators, also maintained on an nebulizer machine at home. Patient is not prednisone dependent. He saw Dr. Corona today with symptoms of cough, unable to clear his sputum, and he has intermittent rattling sensation in the chest and wheezing. Apparently the patient has been on some sort of treatment on outpatient basis, but was not getting much improvement, hence Dr. Corona decided to admit him today. Patient did have diffuse rhonchi and wheezes on physical examination, mostly on the right side, and his chest x-ray although read normal by the radiologist, is strongly suspicious for a limited infiltrate in the right middle lobe. Patient denies any fever, no chills, no hemoptysis, no chest pain. His oxygen saturation on room air was marginal between 91-92%. After evaluating the patient, I recommended that we keep the patient on his present antibiotics including Rocephin and Zithromax will keep him on Xopenex, and I will also recommend Solu-Medrol 60 mg IV push every 6 hours. If the patient doesn't improve much over the next couple of days, bronchoscopy will have to be considered. Labs were noted to be relatively unremarkable except for elevated creatinine of 1.69. Patient denies any headaches no blurred vision no dizziness. No chest pain but he feels a rattling sensation in the chest, no nausea no vomiting no melena no hematemesis is no dysuria and no frequency no urgency. No aches and pains. The patient is seen again today 05/18/2017 in follow-up in the regular medical floor. He is awake and alert in no acute distress. He continues with a loose nonproductive cough. No chills or night sweats. He is breathing easier today as compared to yesterday. Not quite back to his baseline. Today's chest x-ray reveals evidence of COPD and mild cardiomegaly but no acute pulmonary process. No leukocytosis. He remains afebrile. Maintaining good O2 saturations in the mid 90s on 2 L/m per nasal cannula. He is continued on ceftriaxone and azithromycin. Objective - Vital Signs Vital signs: Vital Signs Temp 97.2 F L 05/18/17 08:27 Pulse 89 05/18/17 08:29 Resp 18 05/18/17 08:27 BP 154/109 05/18/17 08:27 Pulse Ox 95 05/18/17 08:27 Intake & Output 05/17/17 05/18/17 05/18/17 18:59 06:59 18:59 Intake Total 780 100 Balance 780 100 Weight 87.5 kg Intake: Oral 780 100 Other: Voiding Method Toilet Toilet Toilet # Voids 1 1 3 - Exam GENERAL EXAM: Alert, active, comfortable in no apparent distress. HEAD: Normocephalic. EYES: Normal reaction of pupils, equal size. NOSE: Clear with pink turbinates. THROAT: No erythema or exudates. NECK: No masses, no JVD. CHEST: No chest wall deformity. LUNGS: Equal air entry with no crackles, wheeze, rhonchi or dullness. CVS: S1 and S2 normal with no audible murmurs, regular rhythm. ABDOMEN: No hepatosplenomegaly, normal bowel sounds, no guarding or rigidity. SPINE: No scoliosis or deformity SKIN: No rashes CENTRAL NERVOUS SYSTEM: No focal deficits, tone is normal in all 4 extremities. Extremities: There is no peripheral edema. No clubbing, no cyanosis. Peripheral pulses are intact. - Labs CBC & Chem 7: 05/18/17 06:59 05/18/17 06:59 Labs: Abnormal Lab Results - Last 24 Hours (Table) 05/17/17 05/17/17 05/18/17 Range/Units 13:23 13:23 06:59 RDW 15.8 H 15.8 H (11.5-15.5) % Neutrophils # 8.9 H (1.3-7.7) k/uL Lymphocytes # 0.9 L (1.0-4.8) k/uL Creatinine 1.69 H (0.66-1.25) mg/dL Glucose 101 H (74-99) mg/dL POC Glucose (mg/dL) (75-99) mg/dL ALT 78 H (21-72) U/L 05/18/17 05/18/17 Range/Units 06:59 11:43 RDW (11.5-15.5) % Neutrophils # (1.3-7.7) k/uL Lymphocytes # (1.0-4.8) k/uL Creatinine (0.66-1.25) mg/dL Glucose 169 H (74-99) mg/dL POC Glucose (mg/dL) 327 H (75-99) mg/dL ALT 84 H (21-72) U/L Assessment and Plan Plan: Impression: #1 Acute community-acquired right middle lobe pneumonia. #2 Acute exacerbation of chronic mild persistent asthma. #3 Remote history of chronic tobacco dependence. #4 Acute hypoxic respiratory failure secondary to above. #5 Acute kidney injury, recovered current creatinine 1.22. #6 Hyperlipidemia. #7 Hypertension. #8 Hypothyroidism. #9 History of CVA/TIA. #10 Carotid artery stenosis. Plan: The patient was seen and evaluated by Dr. Guillory. He is improved today as compared to yesterday. His chest x-ray and labs were reviewed. We'll continue with his current medications. We will increase his activity as tolerated. No plans for bronchoscopy at this point. We'll continue to follow. I have completed a history and physical examination on the above patient. Pulmonary exam reveals few scattered rhonchi. I agree with the note as dictated by my nurse practitioner, Rachel Khan. We have reviewed and discussed the assessment and plan of care.
--- NOTE | 2017-05-18 13:12 | PN ---
PROGRESS NOTE A 71-year-old white male who was admitted to the hospital from my office with persistent asthma and pneumonia. He was seen 3 days earlier with pneumonia and shortness of breath and wheezing and "rattling" in the chest. He states that the symptoms did not resolve progressively worse. He came into the office, had an O2 sat at 88, was placed in the hospital accordingly. He has a long-standing history of osteoarthritis, hypertension, hyperlipidemia, fibromyalgia, chronic back pain and asthma. He is a former smoker. 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 He was scheduled for an ultrasound of the kidneys, which was completed which shows a kidney stone and a lateral cystic lesion, appears to be probably nonvascular. We will follow up with a CT scan on this. He also appears to have some thickening and perhaps cystitis. This was completed for hematuria to begin with. If the hematuria does not resolve, then would follow and would need a CAT scan and the need for perhaps cystoscopy. At this time, he is less short of breath. He has less cough. His wheezing is much less. He is bringing up some specific material. His previous surgeries of course are that of carotid surgeries, plaque removed, 1 artery occluded. Left carotid artery has 30% occlusion, left face and knee cellulitis, previous hypothyroid, chronic back pain, previous vertebral fractures, pericarditis in the 1970s . PAST MEDICAL HISTORY: Surgeries: Left carotid endarterectomy, right carotid arthrotomy, left hand middle finger surgery, colonoscopy, bilateral cataracts and lens transplants. REACTION TO PAST ANESTHESIA: Patient had a history of severe hypotension post carotid surgery which actually precipitated his CVA. Other than that, he has been fine since. FAMILY HISTORY: Father with CVA, multiple MIs. He at the age of 88. MEDICATIONS: At this period of time, he takes: 1. Xanax 0.25 p.r.n. 2. Eliquis 5 mg q.12. 3. 81 of aspirin daily. 4. Lipitor 80 daily. 5. Cymbalta 60 daily. 6. Nexium 40 daily. 7. Synthroid 0.15 daily. 8. Folic acid 0.8. 9. 10 of Zetia. 10.Methotrexate 7.5 daily. 11.25 of Lopressor daily. 12.Singular 10. 13.30 of Cymbalta daily. 14.Xopenex every 6 hours. 15.Flomax 0.4 daily. ALLERGIES: HE HAS HAD SEVERE DECREASE IN BLOOD PRESSURE, HYPOTENSION TO LISINOPRIL. PENICILLIN: ALLERGY WITH RASH. AVELOX: HAD A RASH AND RASH. PHYSICAL EXAM: At this time, the patient is alert well orientated to person, place and thing. Psychiatrically, has no anxiety and no depression. VITAL SIGNS: Blood pressure was 140/80, heart rate is in the 90s, respiratory rate is 18 and temperature is 97. EYES: Pupils are equal, round, reactive to light and accommodation. ENT: Showed tympanic membranes and pharynx to be negative. He has a very dry mouth. NECK: Supple with midline trachea with good carotid upstroke. No evidence of JVD. No palpable masses. CHEST: He has some wheezing, some decreased breath sounds, but there are no rales. There are no rhonchi. HEART: Sinus rhythm. No murmur. Negative S3. Negative S4. ABDOMEN: He is obese. Good bowel sounds. Soft, nontender with no organomegaly. No discomfort with pain. LOWER LEGS: He has good palpable lower extremities. He has arthritis in his knees, hypertrophic changes. Also decrease in range of motion with right shoulder arthrotomy scar seen. INTEGUMENTARY: He has some varicosities in the lower leg along with some stasis dermatitis changes. VASCULAR: He has good palpable lower extremity pulses, good upper and lower extremity pulses and having had a CVA from carotid obstruction post carotid endarterectomy. ALLERGY: He has a stuffed nose. He is on Flonase and Singulair on a regular basis. There is no nasal deviation. ASSESSMENT: 1. Acute moderate persistent asthma. 2. History of pneumonia, right lower lung. 3. Long-standing history of hypertension. 4. History of fibromyalgia. 5. History of benign prostatic hypertrophy. 6. Previous cerebrovascular accident with minimal to no sequelae. 7. Hypotension. 8. History of general osteoarthritis with severe degenerative disc disease and arthritis, service-related. 9. Non cigarette smoker x20 years. 10.Hematuria on evaluation and will need followup with a CT scan. 11.History of asthma. 12.Also previous transient ischemic attack. 13.Obesity. PLAN: Continue with the steroids. Continue with IV antibiotics. Creatinine lab work has improved from 1.69 to 1.22 and GFR is now greater than 60 related with hypovolemia. Will please refer to my orders on medications. We also added his Lunesta to take at bedtime. He can bring from home. The patient is stable. MMODL / IJN: [id number] /
[2017-05-18] MEDS: INSULIN LISPRO (humaLOG) 300 UNIT/3 ML VIAL SQ SCH ×3 (13:14→21:21)
[2017-05-18 13:53] LABS: Hemoglobin A1C 6.6 % (4.2-6.1)
[2017-05-18] MEDS: ALBUTEROL NEBULIZED 2.5 MG/3 ML INHALATION SCH ×2 (15:58→20:21)
[2017-05-18 17:24] LABS: Glucose,Whole Blood 236 mg/dL (75-99)
[2017-05-18] MEDS ORDERED: MD COMMUNICATION TO PHARMACY 1 EACH MISC PO PRN (18:04)
[2017-05-18 20:16] LABS: Glucose,Whole Blood 280 mg/dL (75-99)
[2017-05-18] MEDS: EZETIMIBE 10 MG TAB PO SCH (21:19)
[2017-05-18] MEDS: DULoxetine HCL 30 MG CAPSULE.DR PO SCH (21:19)
[2017-05-19] MEDS: methylPREDNISolone SOD SUCCI 125 MG/2 ML VIAL IV SCH (05:55)
[2017-05-19] MEDS: LEVOTHYROXINE 75 MCG TAB PO SCH (05:56)
[2017-05-19] MEDS: ALBUTEROL NEBULIZED 2.5 MG/3 ML INHALATION SCH ×4 (07:57→19:51)
[2017-05-19] MEDS: IPRATROPIUM 0.5 MG/2.5 ML NEBU INHALATION SCH ×4 (07:57→19:51)
[2017-05-19] MEDS: SYMBICORT 160-4.5 MCG INHALER INHALATION SCH ×2 (07:57→19:51)
[2017-05-19] MEDS: MONTELUKAST 10 MG TAB PO SCH (08:20)
[2017-05-19] MEDS: guaiFENesin 600 MG TABLET.ER PO SCH ×2 (08:20→21:01)
[2017-05-19] MEDS: METOPROLOL TARTRATE 25 MG TAB PO SCH (08:20)
[2017-05-19] MEDS: TAMSULOSIN 0.4 MG CAP.ER.24H PO SCH (08:20)
[2017-05-19] MEDS: DULoxetine HCL 60 MG CAPSULE.DR PO SCH (08:20)
[2017-05-19] MEDS: APIXABAN 5 MG TAB PO SCH ×2 (08:20→21:01)
[2017-05-19] MEDS: ATORVASTATIN 80 MG TAB PO SCH (08:20)
[2017-05-19] MEDS: FOLIC ACID 1 MG TAB PO SCH (08:20)
[2017-05-19] MEDS: ASPIRIN 81 MG PO SCH (08:20)
[2017-05-19] MEDS: PANTOPRAZOLE 40 MG TABLET PO SCH (08:28)
[2017-05-19] MEDS: 0.9% NACL WITH KCL 20 MEQ/L 1,000 ML IV SCH (08:28)
[2017-05-19] MEDS: INSULIN LISPRO (humaLOG) 300 UNIT/3 ML VIAL SQ SCH ×4 (08:28→21:01)
--- NOTE | 2017-05-19 11:19 | PN ---
PROGRESS NOTE 71-year-old, white male, was admitted to the hospital from my office with persistent asthma and pneumonia and had been seen three days earlier with pneumonia and shortness of breath and wheezing and rattling in his chest. We started him on steroids, updrafts, antibiotics with no improvement. Came back to the office with O2 sats of 88, had short of breath. Placed in the hospital accordingly. He has a longstanding history of osteoarthritis, hypertension, hyperlipidemia, fibromyalgia, chronic back pain and asthma. He is a former cigarette smoker. Stopped nearly 20 years ago. He has has been around dirt, dust, contamination heavy doses of gun powder, minerals for a good part of his life. He was scheduled for ultrasound of the kidney which was completed which shows some stones lateral cystic type of lesion which appears to be non vascular. He also has some fullness of the bladder. This was completed for a 2 week followup of hematuria. He will be setup for a CT scan, unfortunately he had a creatinine that went up to 1.6 with elevated BUN indicative of dehydration and we were treating that accordingly. Fortunately now his creatinine is down to 1.2. He also has a long-standing history of carotid surgery with plaque replacement occluded. He had an unfortunate event with lisinopril which he had severe hypotension which occurred during anesthesia and post left carotid endarterectomy. He had a CVA, he has recovered from the CVA was completely except for some decreased mentation, which is not apparent to me but still apparent to his . PAST MEDICAL HISTORY: Has a left carotid endarterectomy. Right carotid arthrotomy, left hand middle finger surgery, colonoscopy, bilateral cataracts with lens placement, anesthesia reaction related with the lisinopril causing the CVA, no problems with blood products. FAMILY HISTORY: His father had CVA and had multiple OH's. He age 88. His mother is still alive. SOCIAL HISTORY: He is an occasional alcohol drinker of beer but just occasionally. Noncigarette smoker x20 years. Does not use any illicit drugs. He does live with his . They are both retired. 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 MEDICATIONS: At this time he takes: 1. Xanax 0.25 p.r.n. every 8 hours for anxiety. 2. Eliquis 5 mg q.12. 3. Aspirin 81 daily. 4. Lipitor 20 daily. 5. Cymbalta 60 daily. 6. Nexium 40 daily. 7. Synthroid 0.15 daily. 8. Folic acid. 0.8 daily. 9. Zetia 10 daily. 10.Methotrexate 7.5 mg Saturday once weekly. 11.Lopressor 25 daily. 12.Singular 10 daily. 13.Cymbalta 30 daily. 14.Xopenex 1.25 every 6 hours for wheeze. 15.Flomax 0.4 daily. ALLERGIES: HE HAS A NEGATIVE RESPONSE TO LISINOPRIL. HE HAS A RASH WITH PENICILLIN. AVELOX. PHYSICAL EXAMINATION: He is alert, well orientated to person, place, and the patient has responded well to treatment and he is having much less wheezing today. REVIEW OF SYSTEMS: EYES: The patient is not having problems seeing. Does wear glasses. Ears has significantly decreased in hearing. Throat he has a dry mouth. Neck: Has no pain. No masses that are noted. Respiratory: He has some wheezing he is breathing much better at this period of time. Coughing up a minimal amount of phlegm. Heart: No palpitations. No chest pain. ABDOMEN: Soft. No tenderness. No hematochezia. No hematemesis. No nausea and no vomiting. No melena. Extremities he has pain in his hands and his wrists which has been service related. He also has chronic back problems. INTEGUMENTARY: he has no new rashes. Vascular: His feet get cold, he does have some evidence of Raynaud phenomenon. Allergy: He always has a stuffed nose and responds to Sash Maker accordingly, that is why he uses the Flonase and the Singular. Psychiatric: His mentation is still a little slow from the CVA. He is not anxious for the most part, though he does have episodes of anxiety. He has no depression. PHYSICAL EXAMINATION: Today blood pressure 138/80, heart rate is in the 90s. Respiratory rate is 18, temperature is 97. Eyes: Pupils are equal, round, react to light and accommodation. ENT showed tympanic membranes and pharynx to be negative. He does have a dry mouth. NECK: Supple. Midline trachea. Good carotid upstroke. Evidence of scar on the right side from surgery has seen. He has no JVD and no palpable masses. Chest he has some wheezes and some decreased breath sounds. They are improved and less than yesterday. Negative rhonchi. Negative rales. Heart sinus rhythm. No murmur. Negative S3, negative S4. Abdomen was obese with good bowel sounds. Soft, nontender. No organomegaly. No discomfort in legs. Lower legs he has good palpable lower extremity pulses. He has some arthritis in his knees. He has arthritis in his ankles with decreased range of motion. Decreased range of motion of the right shoulder with arthrotomy. Lumbar: Decreased range of motion lumbar spine, with pain to minimal wound with integumentary. He has severe varicosities in the lower legs with some stasis dermatitis. Vasculature: He has good palpable lower extremity pulses. Good upper extremity pulses. Scar in his neck from the carotid obstruction with post carotid endarterectomy. Allergies: Very stuffed nose, he uses Flonase, Singulair and . He has no nasal deviation. ASSESSMENT: 1. Acute moderate persistent asthma. 2. History of pneumonia right lower lobe. 3. Long standing history of hypertension. 4. Fibromyalgia. 5. Benign prostate hypertrophy. 6. Cerebrovascular accident, CVA with minimal to no sequelae. 7. Hypotension. 8. Generalized osteoarthritis. Mostly traumatic in nature in the knees, ankles and hands, and now lumbar spine with degenerative disc disease. 9. Hematuria on evaluation. Because of his ultrasound a CT scan will be done on outpatient basis. 10.History of asthma. 11.Ischemic attack. 12.Obesity. PLAN: Would decrease his steroids to 40 mg q.6. I talked with Dr. Guillory about his discharge in the morning. His creatinine has been improved so we will do a CT scan on an outpatient basis. We will do urine today for hematuria. His Lunesta was added to his bedtime use for sleeping. Permission granted to bring from home. MMODL / IJN: [id number] /
[2017-05-19 11:58] LABS: Glucose,Whole Blood 352 mg/dL (75-99)
[2017-05-19 12:10] LABS: Appearance,Urine Clear (Clear); Bilirubin,Urine Negative (Negative); Glucose,Urine (UA) 4+ (Negative); Ketones,Urine Negative (Negative); Leukocyte Esterase,Urine Negative (Negative); Mucus,Urine Rare /hpf; Nitrite,Urine Negative (Negative); Particle Count 540; Protein,Urine Negative (Negative); RBC,Urine >182 /hpf (0-5); Specific Gravity,Urine 1.015 (1.001-1.035); UA Billing (MACRO vs. MICRO) MICRO; Urobilinogen,Urine <2.0 mg/dL (<2.0); WBC,Urine 42 /hpf (0-5)
--- NOTE | 2017-05-19 12:33 | P.PN ---
Subjective Principal diagnosis: Acute right lobe pneumonia, community-acquired. This is a 71-year-old white male was primarily a patient of Dr. Menendez, patient is known to have history of asthma, used to be a smoker many years ago, but quit. Patient was diagnosed as having intermittent episodes of asthma exacerbations by his primary care physician. Maintained on bronchodilators, also maintained on an nebulizer machine at home. Patient is not prednisone dependent. He saw Dr. Corona today with symptoms of cough, unable to clear his sputum, and he has intermittent rattling sensation in the chest and wheezing. Apparently the patient has been on some sort of treatment on outpatient basis, but was not getting much improvement, hence Dr. Corona decided to admit him today. Patient did have diffuse rhonchi and wheezes on physical examination, mostly on the right side, and his chest x-ray although read normal by the radiologist, is strongly suspicious for a limited infiltrate in the right middle lobe. Patient denies any fever, no chills, no hemoptysis, no chest pain. His oxygen saturation on room air was marginal between 91-92%. After evaluating the patient, I recommended that we keep the patient on his present antibiotics including Rocephin and Zithromax will keep him on Xopenex, and I will also recommend Solu-Medrol 60 mg IV push every 6 hours. If the patient doesn't improve much over the next couple of days, bronchoscopy will have to be considered. Labs were noted to be relatively unremarkable except for elevated creatinine of 1.69. Patient denies any headaches no blurred vision no dizziness. No chest pain but he feels a rattling sensation in the chest, no nausea no vomiting no melena no hematemesis is no dysuria and no frequency no urgency. No aches and pains. The patient is seen again today 05/18/2017 in follow-up in the regular medical floor. He is awake and alert in no acute distress. He continues with a loose nonproductive cough. No chills or night sweats. He is breathing easier today as compared to yesterday. Not quite back to his baseline. Today's chest x-ray reveals evidence of COPD and mild cardiomegaly but no acute pulmonary process. No leukocytosis. He remains afebrile. Maintaining good O2 saturations in the mid 90s on 2 L/m per nasal cannula. He is continued on ceftriaxone and azithromycin. Reevaluated today on 05/19/2017, patient is feeling better, breathing easier, continues to have some occasional cough. Less shortness of breath, less wheezing, and less congestion. No chest pain. No fever no chills no hemoptysis. Objective - Vital Signs Vital signs: Vital Signs Temp 97.8 F 05/19/17 08:38 Pulse 78 05/19/17 11:12 Resp 18 05/19/17 08:38 BP 160/92 05/19/17 08:38 Pulse Ox 97 05/19/17 08:38 Intake & Output 05/18/17 05/19/17 05/19/17 18:59 06:59 18:59 Intake Total 240 1600 Balance 240 1600 Intake: Intake, IV Titration 1600 Amount 0.9% NaCl with KCl 20 Meq 1600 /l 1,000 ml @ 100 mls/hr IV .Q10H ANITA Rx#: [id number] Oral 240 Other: Voiding Method Toilet Toilet Toilet # Voids 2 2 3 - Exam GENERAL EXAM: Alert, active, comfortable in no apparent distress. HEAD: Normocephalic. EYES: Normal reaction of pupils, equal size. NOSE: Clear with pink turbinates. THROAT: No erythema or exudates. NECK: No masses, no JVD. CHEST: No chest wall deformity. LUNGS: Equal air entry with no crackles, wheeze, rhonchi or dullness. CVS: S1 and S2 normal with no audible murmurs, regular rhythm. ABDOMEN: No hepatosplenomegaly, normal bowel sounds, no guarding or rigidity. SPINE: No scoliosis or deformity SKIN: No rashes CENTRAL NERVOUS SYSTEM: No focal deficits, tone is normal in all 4 extremities. Extremities: There is no peripheral edema. No clubbing, no cyanosis. Peripheral pulses are intact. - Labs CBC & Chem 7: 05/18/17 06:59 05/18/17 06:59 Labs: Abnormal Lab Results - Last 24 Hours (Table) 05/18/17 05/18/17 05/18/17 Range/Units 06:59 17:12 20:15 POC Glucose (mg/dL) 236 H 280 H (75-99) mg/dL Hemoglobin A1c 6.6 H (4.2-6.1) % Urine Glucose (UA) (Negative) Urine Blood (Negative) Urine RBC (0-5) /hpf Urine WBC (0-5) /hpf Urine Mucus (None) /hpf 05/19/17 05/19/17 Range/Units 11:37 11:52 POC Glucose (mg/dL) 352 H (75-99) mg/dL Hemoglobin A1c (4.2-6.1) % Urine Glucose (UA) 4+ H (Negative) Urine Blood Large H (Negative) Urine RBC >182 H (0-5) /hpf Urine WBC 42 H (0-5) /hpf Urine Mucus Rare H (None) /hpf Assessment and Plan Plan: #1 Acute community-acquired right middle lobe pneumonia. #2 Acute exacerbation of chronic mild persistent asthma. #3 Remote history of chronic tobacco dependence. #4 Acute hypoxic respiratory failure secondary to above. #5 Acute kidney injury, recovered current creatinine 1.22. #6 Hyperlipidemia. #7 Hypertension. #8 Hypothyroidism. #9 History of CVA/TIA. #10 Carotid artery stenosis. Recommendation: Continue present meds, consider discharge planning in the next 24 hours, follow-up chest x-ray in a.m. And follow-up on outpatient basis. Time with Patient: Less than 30
[2017-05-19] MEDS: AZITHROMYCIN 500 MG in SODIUM CHLORIDE 0.9% 250 ML IVPB SCH (13:55)
[2017-05-19] MEDS: methylPREDNISolone SOD SUCCI 40 MG/ML 1 ML VIAL IV SCH (17:12)
[2017-05-19 17:39] LABS: Glucose,Whole Blood 284 mg/dL (75-99)
[2017-05-19] MEDS: EZETIMIBE 10 MG TAB PO SCH (21:01)
[2017-05-19] MEDS: DULoxetine HCL 30 MG CAPSULE.DR PO SCH (21:01)
[2017-05-19 21:03] LABS: Glucose,Whole Blood 316 mg/dL (75-99)
[2017-05-20] MEDS: 0.9% NACL WITH KCL 20 MEQ/L 1,000 ML IV SCH ×2 (00:06→08:35)
[2017-05-20] MEDS: methylPREDNISolone SOD SUCCI 40 MG/ML 1 ML VIAL IV SCH ×2 (00:15→08:53)
[2017-05-20] MEDS: LEVOTHYROXINE 75 MCG TAB PO SCH (06:05)
[2017-05-20 07:17] LABS: Glucose,Whole Blood 230 mg/dL (75-99)
[2017-05-20] MEDS: ALBUTEROL NEBULIZED 2.5 MG/3 ML INHALATION SCH ×4 (08:35→20:06)
[2017-05-20] MEDS: SYMBICORT 160-4.5 MCG INHALER INHALATION SCH ×2 (08:35→20:06)
[2017-05-20] MEDS: IPRATROPIUM 0.5 MG/2.5 ML NEBU INHALATION SCH ×4 (08:35→20:15)
[2017-05-20 08:40] LABS: Glucose,Whole Blood 171 mg/dL (75-99)
[2017-05-20] MEDS: APIXABAN 5 MG TAB PO SCH ×2 (08:46→20:27)
[2017-05-20] MEDS: MONTELUKAST 10 MG TAB PO SCH (08:46)
[2017-05-20] MEDS: FOLIC ACID 1 MG TAB PO SCH (08:46)
[2017-05-20] MEDS: ATORVASTATIN 80 MG TAB PO SCH (08:46)
[2017-05-20] MEDS: PANTOPRAZOLE 40 MG TABLET PO SCH (08:46)
[2017-05-20] MEDS: DULoxetine HCL 60 MG CAPSULE.DR PO SCH (08:46)
[2017-05-20] MEDS: ASPIRIN 81 MG PO SCH (08:47)
[2017-05-20] MEDS: guaiFENesin 600 MG TABLET.ER PO SCH ×2 (08:47→20:27)
[2017-05-20] MEDS: TAMSULOSIN 0.4 MG CAP.ER.24H PO SCH (08:47)
[2017-05-20] MEDS: METOPROLOL TARTRATE 25 MG TAB PO SCH (08:47)
[2017-05-20] MEDS: INSULIN LISPRO (humaLOG) 300 UNIT/3 ML VIAL SQ SCH ×4 (08:47→20:29)
--- NOTE | 2017-05-20 09:55 | XR ---
EXAMINATION TYPE: XR chest 2V DATE OF EXAM: 05/20/2017 COMPARISON: 05/18/2017 TECHNIQUE: PA and lateral views submitted. HISTORY: Follow-up pneumonia FINDINGS: Heart size is stable. No pneumothorax. No interstitial edema. Improving subsegmental consolidation in the left lung base. Hypertrophic change of the spine. IMPRESSION: 1. Subsegmental changes left lung base correlate for atelectasis or resolving infiltrate.
--- NOTE | 2017-05-20 11:34 | P.PN ---
Subjective Principal diagnosis: 05/17/2017 This is a 71 year old male who was directly admitted to the hospital on [address] Sandoval office for persistent asthma and pneumonia. He states he was seen in office on Saturday for shortness of breath, wheezing, and a "rattling " in his chest. He states that his symptoms did not resolve and presented back the office today. The patient was admitted for persistent asthma and pneumonia. Consults were placed for pulmonary to see the patient. The patient has a history of osteoarthritis, hypertension, hyperlipidemia, fibromyalgia, chronic lower back pain, asthma. He is a former smoker. The patient is ordering IV fluid hydration with 0.9 NS with 20KCL at 150cc/hr. He is receiving Solu-Medrol 80 mg IV push every six hours. He was started on Zithromax 500 mg IV piggyback every 24 hours and Rocephin 1 g IV piggyback every 24 hours. He has scheduled breathing treatment of Xopenex ordered. He is on a regular diet. Blood work and chest x-ray will be completed. The patient also states he had hematuria found on a urine sample at Dr Sandoval office. He has a script for a kidney ultrasound which the patient is able to complete during his admission to the hospital per the ultrasound department. Upon assessment and evaluation, the patient does not appear to be in any acute distress. His is at the bedside. He states he feels like his lungs are "junky" today. The patient does sound coarse throughout with some scattered wheezing. His oxygen saturation was 90% on room air. Spoke with nursing and patient will be placed on a nasal cannula. He denies any chest pain or pressure. He states he is tolerating food and fluids without nausea or vomiting. His blood pressure has been stable. He is afebrile at this time. 05/18/[address] Corona 05/19/[address] Corona 05/20/2017 The patient was seen and examined this morning on rounds with Dr. Corona. He states his breathing feels better, but still complains of "rattling" in the chest. His chest xray this morning shows atelectasis versus resolving infiltrates. He is maintaining an oxygen saturation greater than 92% on 3 L NC. Patient may need home oxygen, case management aware. He remains on scheduled breathing treatments and IV steroids 40mg Q8. His IV fluid was decreased due to increasing edema. The patient underwent an ultrasound of the kidneys and bladder due to hematuria that was found on an outpatient basis. 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 Per Dr Corona , the patient is follow up outpatient with Dr. Grace, urologist. The patients blood sugars have been elevated and ranging between 171-352. Dr Corona would like the patient to go home on sliding scale insulin while he is receiving steroid treatment. Spoke with Derek, correctional case records supervisor, who states insurance will not cover glucose supplies due to steroid induced hyperglycemia. receiving manager did give patient a free glucose meter. The patient and his do not think he is ready to be discharged home today. Objective - Vital Signs Vital signs: Vital Signs Temp 97.6 F 05/20/17 08:08 Pulse 78 05/20/17 08:47 Resp 16 05/20/17 08:08 BP 137/95 05/20/17 08:08 Pulse Ox 94 L 05/20/17 08:38 Intake & Output 05/19/17 05/20/17 05/20/17 18:59 06:59 18:59 Intake Total 240 Output Total 1000 Balance 240 -1000 Intake: Oral 240 Output: Urine 1000 Other: Voiding Method Toilet Toilet # Voids 4 2 - Exam GENERAL: Alert and oriented. Pleasant and cooperative. at the bedside. RESPIRATORY: Rhonchi noted. No use of accessory muscles. Patients oxygen saturation is greater than 92% on 3L NC.%. CARDIOVASCULAR: S1 and S2 noted. No JVD noted. EXTREMITIES: No edema noted. Palpable pedal pulses +2. ABDOMEN: No distention noted. Abdomen soft and round. Normal active bowel sounds auscultated 4 quadrants. No pain or tenderness noted upon palpation. - Labs CBC & Chem 7: 05/18/17 06:59 05/18/17 06:59 Labs: Abnormal Lab Results - Last 24 Hours (Table) 05/19/17 05/19/17 05/19/17 Range/Units 07:30 11:37 11:52 POC Glucose (mg/dL) 230 H 352 H (75-99) mg/dL Urine Glucose (UA) 4+ H (Negative) Urine Blood Large H (Negative) Urine RBC >182 H (0-5) /hpf Urine WBC 42 H (0-5) /hpf Urine Mucus Rare H (None) /hpf 05/19/17 05/19/17 05/20/17 Range/Units 17:34 20:46 08:36 POC Glucose (mg/dL) 284 H 316 H 171 H (75-99) mg/dL Urine Glucose (UA) (Negative) Urine Blood (Negative) Urine RBC (0-5) /hpf Urine WBC (0-5) /hpf Urine Mucus (None) /hpf Assessment and Plan Plan: ASSESSMENT: -Pneumonia, present on admission, sputum culture ordered -Acute on chronic asthma -Shortness of breath and coughing, related to pneumonia and asthma -Hematuria, present on admission, found on recent urinalysis in the outpatient setting, ultrasound shows renal calculus, cystic lesions, and thickened bladder wall -Acute kidney injury, present on admission, creatinine on admission is 1.69. Patients baseline ranges from 0.8-1.0 -Nicotine dependence in remission. Patient is a former cigarette smoker. -History of TIA -History of right carotid endarterectomy -Essential Hypertension -Hyperlipidemia -Hypothyroidism -Osteoarthritis -Obesity, BMI 31.1 PLAN: -Pulmonary on consult. Appreciate recommendations and input -Continue breathing treatments -Continue IV steroids: 40mg every 8 hours -Patient to follow up with Dr Grace, urologist, outpatient secondary to hematuria -Continue IV antibiotics: Azithromycin and ceftriaxone -Await sputum culture results -Discontinue IV fluids -Monitor labs -GI prophylaxis: Protonix 40 mg by mouth daily -DVT prophylaxis: Patient takes Eliquis -Monitor capillary blood glucose and address as appropriate -Monitor vital signs and address as appropriate -Anticipate discharge in the next 24-48 hours -Patient may need home oxygen. case management aware -Patient to check his BS once discharged at home while on steroids. Patient given free glucose meter by case management The above impression and plan of care have been discussed and directed by signing physician. Roberta Moreno, nurse practitioner, acting as scribe for signing physician.
[2017-05-20] MEDS ORDERED: AZITHROMYCIN 500 MG TAB PO SCH (12:00)
[2017-05-20 12:17] LABS: Glucose,Whole Blood 126 mg/dL (75-99)
[2017-05-20 13:47] VITALS: BMI 31.1
--- NOTE | 2017-05-20 14:42 | P.PN ---
Subjective Principal diagnosis: Acute right middle lobe pneumonia, community-acquired Acute right lobe pneumonia, community-acquired. This is a 71-year-old white male was primarily a patient of Dr. Menendez, patient is known to have history of asthma, used to be a smoker many years ago, but quit. Patient was diagnosed as having intermittent episodes of asthma exacerbations by his primary care physician. Maintained on bronchodilators, also maintained on an nebulizer machine at home. Patient is not prednisone dependent. He saw Dr. Corona today with symptoms of cough, unable to clear his sputum, and he has intermittent rattling sensation in the chest and wheezing. Apparently the patient has been on some sort of treatment on outpatient basis, but was not getting much improvement, hence Dr. Corona decided to admit him today. Patient did have diffuse rhonchi and wheezes on physical examination, mostly on the right side, and his chest x-ray although read normal by the radiologist, is strongly suspicious for a limited infiltrate in the right middle lobe. Patient denies any fever, no chills, no hemoptysis, no chest pain. His oxygen saturation on room air was marginal between 91-92%. After evaluating the patient, I recommended that we keep the patient on his present antibiotics including Rocephin and Zithromax will keep him on Xopenex, and I will also recommend Solu-Medrol 60 mg IV push every 6 hours. If the patient doesn't improve much over the next couple of days, bronchoscopy will have to be considered. Labs were noted to be relatively unremarkable except for elevated creatinine of 1.69. Patient denies any headaches no blurred vision no dizziness. No chest pain but he feels a rattling sensation in the chest, no nausea no vomiting no melena no hematemesis is no dysuria and no frequency no urgency. No aches and pains. The patient is seen again today 05/18/2017 in follow-up in the regular medical floor. He is awake and alert in no acute distress. He continues with a loose nonproductive cough. No chills or night sweats. He is breathing easier today as compared to yesterday. Not quite back to his baseline. Today's chest x-ray reveals evidence of COPD and mild cardiomegaly but no acute pulmonary process. No leukocytosis. He remains afebrile. Maintaining good O2 saturations in the mid 90s on 2 L/m per nasal cannula. He is continued on ceftriaxone and azithromycin. Reevaluated today on 05/19/2017, patient is feeling better, breathing easier, continues to have some occasional cough. Less shortness of breath, less wheezing, and less congestion. No chest pain. No fever no chills no hemoptysis. On 05/20/2017 patient continues to do well. Denies shortness of breath, fever or chills. Denies cough, wheezing or congestion. Denies chest pain or hemoptysis. On examination lung sounds are clear. Chest x-ray on 05/20/2017 has been reviewed and shows no evidence of pneumonia. Patient has been wearing the nasal cannula intermittently, but does maintain his oxygen saturations around 94% on room air. Objective - Vital Signs Vital signs: Vital Signs Temp 97.6 F 05/20/17 08:08 Pulse 76 05/20/17 11:45 Resp 16 05/20/17 08:08 BP 137/95 05/20/17 08:08 Pulse Ox 94 L 05/20/17 08:38 Intake & Output 05/19/17 05/20/17 05/20/17 18:59 06:59 18:59 Intake Total 240 Output Total 1000 Balance 240 -1000 Weight 87.5 kg Intake: Oral 240 Output: Urine 1000 Other: Voiding Method Toilet Toilet # Voids 4 2 - Exam Exam GENERAL EXAM: Alert, active, comfortable in no apparent distress. HEAD: Normocephalic. EYES: Normal reaction of pupils, equal size. NOSE: Clear with pink turbinates. THROAT: No erythema or exudates. NECK: No masses, no JVD. CHEST: No chest wall deformity. LUNGS: Equal air entry with no crackles, wheeze, rhonchi or dullness. CVS: S1 and S2 normal with no audible murmurs, regular rhythm. ABDOMEN: No hepatosplenomegaly, normal bowel sounds, no guarding or rigidity. SPINE: No scoliosis or deformity SKIN: No rashes CENTRAL NERVOUS SYSTEM: No focal deficits, tone is normal in all 4 extremities. Extremities: There is no peripheral edema. No clubbing, no cyanosis. Peripheral - Labs CBC & Chem 7: 05/18/17 06:59 05/18/17 06:59 Labs: Abnormal Lab Results - Last 24 Hours (Table) 05/19/17 05/19/17 05/19/17 Range/Units 07:30 17:34 20:46 POC Glucose (mg/dL) 230 H 284 H 316 H (75-99) mg/dL 05/20/17 05/20/17 Range/Units 08:36 12:15 POC Glucose (mg/dL) 171 H 126 H (75-99) mg/dL Assessment and Plan Plan: Assessment and Plan Plan: #1 Acute community-acquired right middle lobe pneumonia, today's chest x-ray did not show any evidence of pneumonia. #2 Acute exacerbation of chronic mild persistent asthma. #3 Remote history of chronic tobacco dependence. #4 Acute hypoxic respiratory failure secondary to above. #5 Acute kidney injury, recovered current creatinine 1.22. #6 Hyperlipidemia. #7 Hypertension. #8 Hypothyroidism. #9 History of CVA/TIA. #10 Carotid artery stenosis. Recommendation: Continue present meds, consider discharge today, may go home on oral Augmentin 875 mg twice a day for 10 days . No prednisone taper is needed. Follow-up with Dr. Guillory in 1-2 weeks on outpatient basis I performed a history & physical examination of the patient and discussed their management with my nurse practitioner, Radha Parker. I reviewed the nurse practitioner's note and agree with the documented findings and plan of care.
[2017-05-20 18:03] LABS: Glucose,Whole Blood 220 mg/dL (75-99)
[2017-05-20 20:04] LABS: Glucose,Whole Blood 205 mg/dL (75-99)
[2017-05-20] MEDS: DULoxetine HCL 30 MG CAPSULE.DR PO SCH (20:27)
[2017-05-20] MEDS: EZETIMIBE 10 MG TAB PO SCH (20:27)
[2017-05-20] MEDS: ALPRAZolam 0.25 MG TAB PO PRN (20:27)
[2017-05-20] MEDS: SULFAMETHOX-TMP 800-160MG 1 EACH TAB PO SCH (21:21)
[2017-05-21] MEDS: LEVOTHYROXINE 75 MCG TAB PO SCH (06:13)
[2017-05-21 07:12] LABS: Glucose,Whole Blood 168 mg/dL (75-99)
[2017-05-21] MEDS: ATORVASTATIN 80 MG TAB PO SCH (07:38)
[2017-05-21] MEDS: APIXABAN 5 MG TAB PO SCH (07:38)
[2017-05-21] MEDS: PANTOPRAZOLE 40 MG TABLET PO SCH (07:38)
[2017-05-21] MEDS: ASPIRIN 81 MG PO SCH (07:38)
[2017-05-21] MEDS: DULoxetine HCL 60 MG CAPSULE.DR PO SCH (07:39)
[2017-05-21] MEDS: TAMSULOSIN 0.4 MG CAP.ER.24H PO SCH (07:39)
[2017-05-21] MEDS: MONTELUKAST 10 MG TAB PO SCH (07:39)
[2017-05-21] MEDS: SULFAMETHOX-TMP 800-160MG 1 EACH TAB PO SCH (07:39)
[2017-05-21] MEDS: guaiFENesin 600 MG TABLET.ER PO SCH (07:39)
[2017-05-21] MEDS: FOLIC ACID 1 MG TAB PO SCH (07:39)
[2017-05-21] MEDS: METOPROLOL TARTRATE 25 MG TAB PO SCH (07:39)
[2017-05-21] MEDS: INSULIN LISPRO (humaLOG) 300 UNIT/3 ML VIAL SQ SCH ×2 (07:40→12:40)
[2017-05-21 07:51] LABS: Basophils % (A) 0 %; CH 30.4; CHCM 31.4; Eosinophils # (A) 0.1 k/uL (0-0.7); Eosinophils % (A) 1 %; HCT 50.9 % (39.0-53.0); HDW 2.41; HGB 16.1 gm/dL (13.0-17.5); Luc # (Auto) 0.15; Luc % (Auto) 1; Lymphocytes # (A) 1.9 k/uL (1.0-4.8); Lymphocytes % (A) 16 %; MCH 30.8 pg (25.0-35.0); MCHC 31.6 g/dL (31.0-37.0); MCV 97.3 fL (80.0-100.0); Macrocytosis Slight; Mean Platelet Volume 7.3; Monocytes # (A) 0.8 k/uL (0-1.0); Monocytes % (A) 7 %; Neutrophils # (A) 8.6 k/uL (1.3-7.7); Neutrophils % (A) 74 %; RBC 5.23 m/uL (4.30-5.90); WBC 11.6 k/uL (3.8-10.6); WBC (Perox) 11.68
[2017-05-21] MEDS: ALBUTEROL NEBULIZED 2.5 MG/3 ML INHALATION SCH (08:02)
[2017-05-21] MEDS: IPRATROPIUM 0.5 MG/2.5 ML NEBU INHALATION SCH (08:03)
[2017-05-21] MEDS: SYMBICORT 160-4.5 MCG INHALER INHALATION SCH (08:03)
[2017-05-21 08:16] LABS: ALT 269 U/L (21-72); AST 216 U/L (17-59); Alkaline Phosphatase 70 U/L (38-126); Anion Gap 7 mmol/L; Blood Urea Nitrogen 17 mg/dL (9-20); Calcium 8.9 mg/dL (8.4-10.2); Carbon Dioxide 30 mmol/L (22-30); Chloride 102 mmol/L (98-107); Glucose 132 mg/dL (74-99); Non-African American GFR(MDRD) >60 (>60 ml/min/1.73 sqM); Potassium 4.2 mmol/L (3.5-5.1); Sodium 139 mmol/L (137-145); Total Bilirubin 0.5 mg/dL (0.2-1.3); Total Protein 6.7 g/dL (6.3-8.2)
--- NOTE | 2017-05-21 08:27 | P.DS ---
Providers Date of admission: 05/17/17 11:09 Expected date of discharge: 05/21/17 Attending physician: Abdi Corona Consults: 05/17/17 11:37 Consult Physician Routine Consulting Provider: Joshua Matthews Consult Reason/Comments: pneumonia/asthma Do you want consulting provider notified?: Yes Primary care physician: Abdi Corona [facility] Course: This is a 71 year old male who was directly admitted to the hospital on [address] Sandoval office for persistent asthma and pneumonia. He states he was seen in office on Saturday for shortness of breath, wheezing, and a "rattling " in his chest. He states that his symptoms did not resolve and presented back the office today. The patient was admitted for persistent asthma and pneumonia. Consults were placed for pulmonary to see the patient. The patient has a history of osteoarthritis, hypertension, hyperlipidemia, fibromyalgia, chronic lower back pain, asthma. He is a former smoker. The patient received IV fluid hydration, antibiotics, breathing treatments, and IV steroids. He has been tolerating an oral diet without nausea or vomiting. The patient also states he had hematuria found on a urine sample at Dr Sandoval office. He has a script for a kidney ultrasound which the patient is able to complete during his admission to the hospital per the ultrasound department. The patients ultrasound showed a 7mm renal calculus, lesions on the right kidney in which could represent small angiomyolipoma, and bladder wall thickening. The patient is to see Dr Grace, outpatient, for follow up. His most recent chest xray shows atelectasis versus resolving infiltrates. The patients AST and ALT were noted to be elevated on the morning of 05-21-17 with values of 269 and 216. Prior to this, his AST and ALT were within normal limits. The patient was started on bactrim on 05-20-2017 per pulmonary. GI consulted and abdominal ultrasound ordered. Elevated LFTs are likely due to bactrim per Radha Dean NP. Patient to have labs repeated in 1 week. The patients blood sugars were elevated while receiving steroids in the hospital. Dr Corona originally wanted the patient to go home with insulin and glucometer. However, it was noted that his IV steroids were discontinued on 05-20. The patients last blood sugar was 82. Per pulmonary, the patient did not need to go home on a prednisone taper. Per Dr Corona, the patient does not need a prednisone taper or insulin. The patients prescriptions include zithromax, ceftin, and mucinex The patient is to follow up with Dr Corona, Dr Grace, and Dr Matthews. The patient will need to follow up with GI service if his liver enzymes remain elevated on his re- draw in 1 week. DISCHARGE DIAGNOSIS: -Pneumonia, right middle lobe, present on admission, sputum culture ordered, resolving -Acute on chronic asthma, improved at time of discharge -Shortness of breath and coughing, related to pneumonia and asthma, resolved at time of discharge -Acute hypoxic respiratory failure requiring supplementation oxygen secondary to asthma exacerbation and pneumonia, resolved at time of discharge -Hematuria, present on admission, found on recent urinalysis in the outpatient setting, ultrasound shows renal calculus, cystic lesions, and thickened bladder wall -Acute kidney injury, present on admission, creatinine on admission is 1.69. Patients baseline ranges from 0.8-1.0, resolved -Elevated LFTs, suspected to be drug induced from addition of bactrim, which has since been discontinued -Nicotine dependence in remission. Patient is a former cigarette smoker. -History of TIA -History of right carotid endarterectomy -Essential Hypertension -Hyperlipidemia -Hypothyroidism -Osteoarthritis -Obesity, BMI 31.1 The above impression and plan of care have been discussed and directed by signing physician. Roberta Moreno, nurse practitioner, acting as scribe for signing physician. Patient Condition at Discharge: Stable Plan - Discharge Summary New Discharge Prescriptions: New Azithromycin [Zithromax] 500 mg PO DAILY #10 tab Cefuroxime Axetil [Ceftin] 500 mg PO BID #20 tab guaiFENesin [Mucinex] 600 mg PO Q12HR PRN #20 tab PRN Reason: Cough Continue Apixaban [Eliquis] 5 mg PO Q12H Folic Acid 0.8 mg PO DAILY EPINEPHrine [Epipen 2-Dhaval] 0.3 mg IM ONCE PRN PRN Reason: Anaphylaxis Aspirin EC [Ecotrin Low Dose] 81 mg PO DAILY Montelukast [Singulair] 10 mg PO DAILY Methotrexate Sodium [Methotrexate] 7.5 mg PO TU Levothyroxine Sodium [Synthroid] 150 mcg PO DAILY Esomeprazole Magnesium [NexIUM] 40 mg PO DAILY DULoxetine HCL [Cymbalta] 60 mg PO QAM Metoprolol Tartrate [Lopressor] 25 mg PO DAILY ALPRAZolam [Xanax] 0.25 mg PO DAILY PRN PRN Reason: Anxiety/Insomnia Levalbuterol Nebulized [Xopenex Nebulized] 1.25 mg INHALATION RT-TID PRN PRN Reason: Shortness Of Breath Tamsulosin HCl [Flomax] 0.4 mg PO DAILY DULoxetine HCL [Cymbalta] 30 mg PO HS Levalbuterol Tartrate [Xopenex Hfa Inhaler] 1 - 2 puff INHALATION RT-QID PRN PRN Reason: Shortness Of Breath Discontinued Ezetimibe [Zetia] 10 mg PO HS Atorvastatin Calcium [Lipitor] 80 mg PO DAILY Discharge Medication List ALPRAZolam [Xanax] 0.25 mg PO DAILY PRN 04/21/17 [History] Apixaban [Eliquis] 5 mg PO Q12H 04/21/17 [History] Aspirin EC [Ecotrin Low Dose] 81 mg PO DAILY 04/21/17 [History] DULoxetine HCL [Cymbalta] 60 mg PO QAM 04/21/17 [History] EPINEPHrine [Epipen 2-Dhaval] 0.3 mg IM ONCE PRN 04/21/17 [History] Esomeprazole Magnesium [NexIUM] 40 mg PO DAILY 04/21/17 [History] Folic Acid 0.8 mg PO DAILY 04/21/17 [History] Levothyroxine Sodium [Synthroid] 150 mcg PO DAILY 04/21/17 [History] Methotrexate Sodium [Methotrexate] 7.5 mg PO TU 04/21/17 [History] Metoprolol Tartrate [Lopressor] 25 mg PO DAILY 04/21/17 [History] Montelukast [Singulair] 10 mg PO DAILY 04/21/17 [History] DULoxetine HCL [Cymbalta] 30 mg PO HS 05/17/17 [History] Levalbuterol Nebulized [Xopenex Nebulized] 1.25 mg INHALATION RT-TID PRN [History] Levalbuterol Tartrate [Xopenex Hfa Inhaler] 1 - 2 puff INHALATION RT-QID PRN [History] Tamsulosin HCl [Flomax] 0.4 mg PO DAILY 05/17/17 [History] Azithromycin [Zithromax] 500 mg PO DAILY #10 tab 05/20/17 [Rx] Cefuroxime Axetil [Ceftin] 500 mg PO BID #20 tab 05/20/17 [Rx] guaiFENesin [Mucinex] 600 mg PO Q12HR PRN #20 tab 05/20/17 [Rx] Follow up Appointment(s)/Referral(s): Joshua Matthews DO [Doctor of Osteopathic Medicine] - 06/04/17 9:30 am Abdi Corona MD [Primary Care Provider] - 05/27/17 12:00 pm Jason Grace MD [STAFF PHYSICIAN] - 1 Week (Dr. Grace's office will be calling the patient to schedule an appointment. ) Ambulatory/Diagnostic Orders: ALT [LAB.AMB] Time Frame: 1 Week, Location: Determined By Patient AST [LAB.AMB] Time Frame: 1 Week, Location: Determined By Patient Patient Instructions/Handouts: Cefuroxime (By mouth), Guaifenesin (By mouth), Azithromycin (By mouth), Pneumonia (DC) Activity/Diet/Wound Care/Special Instructions: Patient to make an appointment to see Dr. Grace, urologist, for a consultation due to his hematuria. Patient has a copy of ultrasound to take to his appointment. Discharge Disposition: HOME SELF-CARE
--- NOTE | 2017-05-21 10:47 | P.CONS ---
History of Present Illness - Reason for Consult Consult date: 05/21/17 elevated liver enzymes Requesting physician: Abdi Corona - History of Present Illness 71-year-old male admitted last week with upper respiratory symptoms. Consultation requested for elevated liver enzymes. Patient was treated with outpatient antibiotics Z-francisco j prior to admission. Admission LFTs bilirubin within normal limits with the exception ALT 78. LFTs this morning; total bilirubin 0.5. AST 216. ALT 269. Alkaline phosphatase 70. Upon review of previous medical records no abdominal imaging to review. LFTs are normal limits. Hepatitis B/C screen July 2016 negative. No history of hepatobiliary disorders, hepatitis, or alcoholism. Denies abdominal pain. In-hospital medications include but not limited to Eliquis, Lipitor, Bactrim DS. Bactrim was started yesterday. Review of Systems Constitutional: Denies fever, chills, sweats, weight gain, or loss. HEENT: Negative for migraines, blurred vision or loss, earaches, drainage, tinnitus, oral mucosal lesions, dysphagia, or odynophagia. Cardiac: Hyperlipidemia. Hypertension. Negative for chest pain, arrhythmias, or palpitation. Respiratory: Asthma. Pneumonia. Negative for shortness of breath, hemoptysis, cough, or sputum production. Gastrointestinal: See HPI for pertinent findings. Genitourinary: Negative for hematuria, urgency, frequency, polyuria, dysuria, or penile discharge. Musculoskeletal: Negative for muscle aches, swelling, arthritis, and arthralgias. Neurologic: History of TIA.. Endocrine: Hypothyroidism.. Skin: Negative for rash or itching. Psychiatric: History of anxiety. 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 Additional Past Anesthesia/Blood Transfusion Reaction / Comm: Blood pressure dropped during R caratid artery surgery-surgery was aborted and done 2 days later when pt's blood pressure stabilized. Smoking Status: Former smoker - Past Family History Mother Family Medical History: Hypertension, Osteoarthritis (OA) Additional Family Medical History / Comment(s): Mother is 92 yrs old. Father Family Medical History: CVA/TIA, Myocardial Infarction ([place]) Additional Family Medical History / Comment(s): Father had a CVA and multiple MIs. He from a [place] at the age of 88yrs. Medications and Allergies Home Medications Medication Instructions Recorded Confirmed Type ALPRAZolam [Xanax] 0.25 mg PO DAILY PRN 04/21/17 05/17/17 History Apixaban [Eliquis] 5 mg PO Q12H 04/21/17 05/17/17 History Aspirin EC [Ecotrin Low Dose] 81 mg PO DAILY 04/21/17 05/17/17 History Atorvastatin Calcium [Lipitor] 80 mg PO DAILY 04/21/17 05/17/17 History DULoxetine HCL [Cymbalta] 60 mg PO QAM 04/21/17 05/17/17 History EPINEPHrine [Epipen 2-Francisco J] 0.3 mg IM ONCE PRN 04/21/17 05/17/17 History Esomeprazole Magnesium [NexIUM] 40 mg PO DAILY 04/21/17 05/17/17 History Ezetimibe [Zetia] 10 mg PO 04/21/17 05/17/17 History Folic Acid 0.8 mg PO DAILY 04/21/17 05/17/17 History Levothyroxine Sodium [Synthroid] 150 mcg PO DAILY 04/21/17 05/17/17 History Methotrexate Sodium [Methotrexate] 7.5 mg PO TU 04/21/17 05/17/17 History Metoprolol Tartrate [Lopressor] 25 mg PO DAILY 04/21/17 05/17/17 History Montelukast [Singulair] 10 mg PO DAILY 04/21/17 05/17/17 History DULoxetine HCL [Cymbalta] 30 mg PO HS 05/17/17 05/17/17 History Levalbuterol Nebulized [Xopenex 1.25 mg INHALATION RT-TID PRN 05/17/17 05/17/17 History Nebulized] Levalbuterol Tartrate [Xopenex Hfa 1 - 2 puff INHALATION RT-QID PRN 05/17/17 History Inhaler] Tamsulosin HCl [Flomax] 0.4 mg PO DAILY 05/17/17 05/17/17 History Azithromycin [Zithromax] 500 mg PO DAILY #10 tab 05/20/17 Rx Cefuroxime Axetil [Ceftin] 500 mg PO BID #20 tab 05/20/17 Rx INSULIN LISPRO (humaLOG) [humaLOG 0 units SQ DIRECTED #1 bottle 05/20/17 Rx (formulary)] guaiFENesin [Mucinex] 600 mg PO Q12HR PRN #20 tab 05/20/17 Rx predniSONE 10 mg PO DAILY #30 tab 05/20/17 Rx Allergies Allergy/AdvReac Type Severity Reaction Status Date / Time etodolac Allergy Rash/Hives Verified 05/17/17 12:14 moxifloxacin [From Avelox] Allergy Rash/Hives Verified 05/17/17 12:14 Penicillins Allergy Rash/Hives Verified 05/17/17 12:14 lisinopril AdvReac Severe Verified 05/17/17 12:14 Decrease In Blood Pressure Physical Exam Vitals: Vital Signs Temp Pulse Pulse Resp BP Pulse Ox 05/21/17 09:14 80 18 94 L 05/21/17 08:21 80 05/21/17 08:08 97.4 F L 74 18 179/104 95 05/21/17 08:06 84 97 05/21/17 00:00 81 16 05/20/17 22:44 96.2 F L 81 16 141/83 94 L 05/20/17 20:24 76 05/20/17 20:06 77 05/20/17 16:00 76 20 05/20/17 15:41 97.8 F 76 20 167/86 92 L 05/20/17 15:39 75 05/20/17 15:27 74 05/20/17 11:45 76 05/20/17 11:37 76 Intake and Output 05/20/17 05/21/17 05/21/17 22:59 06:59 14:59 Intake Total 2040 120 Output Total 1400 1250 Balance 640 -1130 Intake: Oral 2040 120 Output: Urine 1400 1250 Other: Voiding Method Toilet Urinal # Voids 1 3 Weight 87.5 kg General appearance: The patient is alert, oriented, in no acute distress. HET: Head is normocephalic and atraumatic. Pupils are equal and reactive. Oropharynx is clear without lesions. Neck: Supple without lymphadenopathy. Trachea midline. Heart: S1 S2. Regular rate and rhythm. Lungs: No crackles or wheezes are heard. Abdomen: Soft, nontender, nondistended with bowel sounds. No peritoneal signs. No palpable organomegaly or masses. Extremities: Normal skin color and turgor. No cyanosis, rash, ulceration, clubbing, or edema. Radial and pedal pulses are 2/4 bilaterally. Neurological: No focal deficits. Strength and sensation are grossly intact. Results CBC & Chem 7: 05/21/17 07:36 05/21/17 07:36 Labs: Abnormal Lab Results - Last 24 Hours (Table) 05/20/17 05/20/17 05/20/17 Range/Units 12:15 17:10 19:57 WBC (3.8-10.6) k/uL RDW (11.5-15.5) % Neutrophils # (1.3-7.7) k/uL Glucose (74-99) mg/dL POC Glucose (mg/dL) 126 H 220 H 205 H (75-99) mg/dL AST (17-59) U/L ALT (21-72) U/L 05/21/17 05/21/17 05/21/17 Range/Units 07:09 07:36 07:36 WBC 11.6 H (3.8-10.6) k/uL RDW 16.0 H (11.5-15.5) % Neutrophils # 8.6 H (1.3-7.7) k/uL Glucose 132 H (74-99) mg/dL POC Glucose (mg/dL) 168 H (75-99) mg/dL AST 216 H (17-59) U/L ALT 269 H (21-72) U/L Assessment and Plan (1) Transaminitis Narrative/Plan: suspect drug-induced transaminitis possibly from Bactrim. Status: Acute Plan: 1. Discontinue statin; avoid hepatotoxic medications. Reevaluation of Bactrim as this could be causing his elevated transaminases; this was discussed with Dr. Matthews. 2. Ultrasound abdomen/right upper quadrant if negative may DC home per medicine /pulmonology. Repeat CMP 3-5 days & follow up with PCP. If transaminases still elevated refer to GI office for followup. 3. Will follow with you. Thank you for this kind referral and the opportunity to participate in the care of your patient. This consultation was discussed with Dr. Chen. The impression and plan of care have been directed as dictated.
[2017-05-21 11:40] LABS: Glucose,Whole Blood 82 mg/dL (75-99)
--- NOTE | 2017-05-21 11:41 | P.PN ---
Subjective Principal diagnosis: Acute right middle lobe pneumonia, community-acquired Acute right lobe pneumonia, community-acquired. This is a 71-year-old white male was primarily a patient of Dr. Menendez, patient is known to have history of asthma, used to be a smoker many years ago, but quit. Patient was diagnosed as having intermittent episodes of asthma exacerbations by his primary care physician. Maintained on bronchodilators, also maintained on an nebulizer machine at home. Patient is not prednisone dependent. He saw Dr. Corona today with symptoms of cough, unable to clear his sputum, and he has intermittent rattling sensation in the chest and wheezing. Apparently the patient has been on some sort of treatment on outpatient basis, but was not getting much improvement, hence Dr. Corona decided to admit him today. Patient did have diffuse rhonchi and wheezes on physical examination, mostly on the right side, and his chest x-ray although read normal by the radiologist, is strongly suspicious for a limited infiltrate in the right middle lobe. Patient denies any fever, no chills, no hemoptysis, no chest pain. His oxygen saturation on room air was marginal between 91-92%. After evaluating the patient, I recommended that we keep the patient on his present antibiotics including Rocephin and Zithromax will keep him on Xopenex, and I will also recommend Solu-Medrol 60 mg IV push every 6 hours. If the patient doesn't improve much over the next couple of days, bronchoscopy will have to be considered. Labs were noted to be relatively unremarkable except for elevated creatinine of 1.69. Patient denies any headaches no blurred vision no dizziness. No chest pain but he feels a rattling sensation in the chest, no nausea no vomiting no melena no hematemesis is no dysuria and no frequency no urgency. No aches and pains. The patient is seen again today 05/18/2017 in follow-up in the regular medical floor. He is awake and alert in no acute distress. He continues with a loose nonproductive cough. No chills or night sweats. He is breathing easier today as compared to yesterday. Not quite back to his baseline. Today's chest x-ray reveals evidence of COPD and mild cardiomegaly but no acute pulmonary process. No leukocytosis. He remains afebrile. Maintaining good O2 saturations in the mid 90s on 2 L/m per nasal cannula. He is continued on ceftriaxone and azithromycin. Reevaluated today on 05/19/2017, patient is feeling better, breathing easier, continues to have some occasional cough. Less shortness of breath, less wheezing, and less congestion. No chest pain. No fever no chills no hemoptysis. On 05/20/2017 patient continues to do well. Denies shortness of breath, fever or chills. Denies cough, wheezing or congestion. Denies chest pain or hemoptysis. On examination lung sounds are clear. Chest x-ray on 05/20/2017 has been reviewed and shows no evidence of pneumonia. Patient has been wearing the nasal cannula intermittently, but does maintain his oxygen saturations around 94% on room air. On 05/21/2017 patient denies cough, chest congestion, or shortness of breath. Denies chest pain or fever. Lung sounds are clear with a few scattered rales at the bases. Patient will be discharged home later today. Follow-up with Dr. Matthews in the office in 2 weeks. Chest x-ray on 05/20/2017 did not show any evidence of pneumonia, tracheobronchitis more likely. Patient will be treated with oral antibiotics for 7 more days. On today's complete metabolic panel elevated liver enzymes were noted however patient denies any abdominal pain, nausea or vomiting. GI service is evaluating the patient in this regard. The statins were discontinued, oral Bactrim may be switched to another alternative. Microbiology results were negative. Ultrasound of the abdomen and right upper quadrant will be done today. Objective - Vital Signs Vital signs: Vital Signs Temp 97.4 F L 05/21/17 08:08 Pulse 80 05/21/17 09:14 Resp 18 05/21/17 09:14 BP 142/86 05/21/17 10:58 Pulse Ox 94 L 05/21/17 09:14 Intake & Output 05/20/17 05/21/17 05/21/17 18:59 06:59 18:59 Intake Total 1160 2160 Output Total 1000 1650 Balance 160 510 Weight 87.5 kg Intake: Intake, IV Titration 80 Amount 0.9% NaCl with KCl 20 Meq 80 /l 1,000 ml @ 100 mls/hr IV .Q10H ANITA Rx#: [id number] Oral 1080 2160 Output: Urine 1000 1650 Other: Voiding Method Toilet Urinal # Voids 3 3 - Exam Exam GENERAL EXAM: Alert, active, comfortable in no apparent distress. HEAD: Normocephalic. EYES: Normal reaction of pupils, equal size. NOSE: Clear with pink turbinates. THROAT: No erythema or exudates. NECK: No masses, no JVD. CHEST: No chest wall deformity. LUNGS: Equal air entry with no crackles, wheeze, rhonchi or dullness. CVS: S1 and S2 normal with no audible murmurs, regular rhythm. ABDOMEN: No hepatosplenomegaly, normal bowel sounds, no guarding or rigidity. SPINE: No scoliosis or deformity SKIN: No rashes CENTRAL NERVOUS SYSTEM: No focal deficits, tone is normal in all 4 extremities. Extremities: There is no peripheral edema. No clubbing, no cyanosis. Peripheral - Labs CBC & Chem 7: 05/21/17 07:36 05/21/17 07:36 Labs: Abnormal Lab Results - Last 24 Hours (Table) 05/20/17 05/20/17 05/20/17 Range/Units 12:15 17:10 19:57 WBC (3.8-10.6) k/uL RDW (11.5-15.5) % Neutrophils # (1.3-7.7) k/uL Glucose (74-99) mg/dL POC Glucose (mg/dL) 126 H 220 H 205 H (75-99) mg/dL AST (17-59) U/L ALT (21-72) U/L 05/21/17 05/21/17 05/21/17 Range/Units 07:09 07:36 07:36 WBC 11.6 H (3.8-10.6) k/uL RDW 16.0 H (11.5-15.5) % Neutrophils # 8.6 H (1.3-7.7) k/uL Glucose 132 H (74-99) mg/dL POC Glucose (mg/dL) 168 H (75-99) mg/dL AST 216 H (17-59) U/L ALT 269 H (21-72) U/L Assessment and Plan Plan: Assessment and Plan Plan: #1 Acute community-acquired right middle lobe pneumonia, today's chest x-ray did not show any evidence of pneumonia. #2 Acute exacerbation of chronic mild persistent asthma. #3 Remote history of chronic tobacco dependence. #4 Acute hypoxic respiratory failure secondary to above. #5 Acute kidney injury, recovered current creatinine 1.22. #6 Hyperlipidemia. #7 Hypertension. #8 Hypothyroidism. #9 History of CVA/TIA. #10 Carotid artery stenosis. Recommendation: Continue present meds, consider discharge today, may go home on oral Bactrim DS or another oral alternative . No prednisone taper is needed. Follow-up with Dr. Matthews in 2 weeks per patient request. I performed a history & physical examination of the patient and discussed their management with my nurse practitioner, Radha Parker. I reviewed the nurse practitioner's note and agree with the documented findings and plan of care.
[2017-05-21] MEDS: IPRATROPIUM-ALBUTEROL 3 ML NEB INHALATION SCH ×2 (11:46→15:25)
[2017-05-21] MEDS ORDERED: METHOTREXATE SODIUM 2.5 MG TAB PO SCH (12:40)
[2017-05-21 15:30] VITALS: BP 140/93; RESP 20; TEMP 97.7
[2017-05-21 15:38] VITALS: PULSE 69
--- NOTE | 2017-05-21 16:02 | US ---
EXAMINATION TYPE: US abdomen complete DATE OF EXAM: 05/21/2017 COMPARISON: Recent Renal US dated 05/17/2017 CLINICAL HISTORY: elevated LFT. Elevated liver enzymes, history of appendectomy, obese patient EXAM MEASUREMENTS: Liver Length: 15.5 cm Gallbladder Wall: 0.2 cm CBD: 0.4 cm Spleen: 11.0 cm Right Kidney: 11.5 x 5.7 x 7.1 cm Left Kidney: 11.9 x 5.9 x 5.0 cm Pancreas: visualized portions appear hyperechoic, partially obscured by overlying midline bowel gas Liver: increased echogenicity, heterogeneous, scanned intercostally, limited by rib shadowing Gallbladder: low level internal echoes Evidence for sonographic Hinds's sign: no CBD: visualized portions wnl, limited by overlying bowel gas Spleen: wnl Right Kidney: 2.0 x 1.9 x 2.0cm complex hypoechoic area inferior pole, 1.4cm exophytic hypoechoic ar ea lateral inferior pole, 1.1cm hyperechoic area lateral inferior pole Left Kidney: 1.3cm echogenic shadowing focus superior pole Upper IVC: Not well seen Abd Aorta: visualized portions wnl, partially obscured by overlying midline bowel gas There is no ascites. IMPRESSION: Correlate for possible hepatic steatosis, hepatocellular disease. There may be cysts at t he lower pole the right kidney, not clearly simple cystic, possible nephrolithiasis bilaterally. Poss ible tumefactive sludge within the gallbladder.
[2017-05-21 16:45] LABS: Glucose,Whole Blood 103 mg/dL (75-99)
== END 2017-05-21 17:55 | disposition home or self-care (01) | DRG 193 ==
LOC: 5MS5E 11:09
PROVIDERS: ADMIT Family Medicine; ATTEND Family Medicine
DX: J18.9 Pneumonia, unspecified organism (principal); J96.01 Acute respiratory failure with hypoxia; N17.9 Acute kidney failure, unspecified; J45.41 Moderate persistent asthma with (acute) exacerbation; I11.9 Hypertensive heart disease without heart failure; E03.9 Hypothyroidism, unspecified; E66.9 Obesity, unspecified; E78.5 Hyperlipidemia, unspecified; E86.0 Dehydration; F17.201 Nicotine dependence, unspecified, in remission; I65.29 Occlusion and stenosis of unspecified carotid artery; M15.9 Polyosteoarthritis, unspecified; M51.36 Other intervertebral disc degeneration, lumbar region; M79.7 Fibromyalgia; N20.0 Calculus of kidney; N40.0 Benign prostatic hyperplasia without lower urinary tract symptoms; T37.0X5A Adverse effect of sulfonamides, initial encounter; T39.395A Adverse effect of other nonsteroidal anti-inflammatory drugs [NSAID], initial encounter; Z79.01 Long term (current) use of anticoagulants; Z79.899 Other long term (current) drug therapy; Z82.3 Family history of stroke; Z82.49 Family history of ischemic heart disease and other diseases of the circulatory system; Z86.73 Personal history of transient ischemic attack (TIA), and cerebral infarction without residual deficits; Z88.0 Allergy status to penicillin; Z96.1 Presence of intraocular lens; Z98.41 Cataract extraction status, right eye; Z98.42 Cataract extraction status, left eye; Z79.82 Long term (current) use of aspirin
CPT/HCPCS: 71020; 76700; 76770; 80053; 81001; 83036; 85025; 86713; 86738; 94640; 94760

== ENCOUNTER → 2017-05-27 | Outpatient (CLI) | payer MEDICARE, OTHER ==
[2017-05-27 10:54] LABS: ALT 112 U/L (21-72); AST 54 U/L (17-59)
== END | disposition home or self-care (01) ==
LOC: LABWHC1 09:31
PROVIDERS: ATTEND Family Medicine
DX: J18.9 Pneumonia, unspecified organism (principal); J96.01 Acute respiratory failure with hypoxia; N17.9 Acute kidney failure, unspecified
CPT/HCPCS: 36415; 84450; 84460

== ENCOUNTER → 2017-11-05 | Outpatient (CLI) | payer MEDICARE, OTHER ==
[2017-11-05 22:52] LABS: Hemoglobin A1C 6.1 % (4.0-6.0)
== END | disposition home or self-care (01) ==
LOC: LABWHC1 12:17
PROVIDERS: ATTEND Family Medicine
DX: E11.9 Type 2 diabetes mellitus without complications (principal)
CPT/HCPCS: 36415; 83036

== ENCOUNTER → 2020-11-16 | Outpatient (CLI) | payer MEDICARE, OTHER ==
--- NOTE | 2020-11-16 15:36 | CONS ---
CONSULTATION DATE OF SERVICE: 11/16/2020 This 75-year-old gentleman had been evaluated [facility] the [facility] for possible obstructive sleep apnea-hypopnea syndrome. HISTORY OF PRESENT ILLNESS/SLEEP-WAKE EVALUATION: Patient's usual sleep schedule from 9 to 10 p.m. until 6 a.m. Sometimes he has problems with falling asleep, although no TV in bedroom. He usually sleeps on the back and side position. According to his , he has loud snoring and witnessed episodes of stopped breathing during the sleep. He wakes up from sleep up to 10 times with up to 4 episodes of nocturia. Positive history of sweating, panic attacks, awakenings with dry mouth. In the morning, patient wakes up tired, has difficulties to pay attention, falling asleep during the day, worries about his sleep, has problems with memory, concentration, irritability, anxiety. Worden Sleepiness Scale is 9. PAST MEDICAL HISTORY: Positive for hypertension, two episodes of strokes, asthma, diabetes mellitus, headaches, acid reflux, hypothyroidism. PAST SURGICAL HISTORY: Carotid endarterectomy, appendectomy, cataract surgery. MEDICATIONS: Aspirin 81 mg once a day, atorvastatin 80 mg once a day, Cymbalta 60 mg, Eliquis 5 mg twice a day, Flomax 0.4 mg once a day, metformin 1000 mg twice a day, methotrexate 2.5 mg, metoprolol 25 mg once a day, Nexium 40 mg once a day, prednisone 10 mg once a day, Synthroid 50 mcg once a day, Singulair 10 mg, Zetia 10 mg once a day, Januvia 100 mg once a day, Xanax 0.25 mg as needed, Lunesta 3 mg, testosterone. REVIEW OF SYSTEMS: Multiple awakenings from sleep, episodes of sleepiness during the day. No fevers. No double vision. No recent chest pain. No shortness of breath. No abdominal pain. No bleeding episodes. No blood in the urine. No seizures episodes. FAMILY HISTORY: Heart problems. PHYSICAL EXAMINATION: GENERAL: gentleman without distress. VITAL SIGNS: BP 130/79, HR 77, RR 15, height 5 feet 7 inches, weight 202.2, temperature 98.3, oxygen saturation at room air 94%. HEENT: PERRLA, EOMI. Oropharynx wide pillars. NECK: Wide 17-1/2 inches in circumference. LUNGS: Clear to percussion and to auscultation. Good air exchange. No wheezing or rhonchi. HEART: S1, S2 regular. No murmurs, gallops, or rubs. ABDOMEN: Soft and nontender. Bowel sounds are present. No organomegaly appreciated. EXTREMITIES: No clubbing or cyanosis. 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 Cranial nerves 2 to 7 intact. There is no fasciculation or atrophy. noted. No focal deficits observed. IMPRESSION: 1. Loud snoring, witnessed episodes of stopped breathing during sleep, wide neck 17- 1/2 inches in circumference, multiple awakenings from sleep with nocturia. Obstructive sleep apnea-hypopnea syndrome. 2. Obesity, body mass index 31. 3. Hypertension. 4. History of two strokes without significant residual deficit. 5. Status post carotid endarterectomy. 6. Asthma. 7. Diabetes mellitus. 8. Headaches. 9. Acid reflux. 10.Hypothyroidism. 11.Status post cataract surgery. 12.Status post appendectomy. PLAN: 1. Polysomnography for evaluation of patient's breathing during sleep. 2. CPAP/BiPAP titration if sleep study confirms obstructive sleep apnea-hypopnea syndrome. 3. Preferable position during sleep on the side. 4. No driving if patient feels any sleepiness. 5. I will see patient for follow up visit to explain results of testing and following plan. Thank you very much for referring this patient for consultation. Sincerely, Brown Infante MD, PhD, FAASM Diplomat of [employer] [facility] [place] MMODL / KELLY: [phone] /
== END | disposition home or self-care (01) ==
CPT/HCPCS: 99211

== ENCOUNTER → 2023-09-23 | Outpatient (CLI) | payer MEDICARE, OTHER ==
--- NOTE | 2023-09-23 16:26 | CT ---
EXAMINATION TYPE: CT chest wo con DATE OF EXAM: 09/23/2023 COMPARISON: HISTORY: chest pain CT DLP: [address] of the chest was performed with lung and mediastinal window settings submitted. The la ck of contrast limits evaluation of the vascular, mediastinal and parenchymal structures including th e upper abdomen. LUNGS: The lungs are clear and free of infiltrate. No atelectasis. No pulmonary nodule or mass is de tected. No pleural effusion. Mild scattered subpleural fibrosis. Hyperinflation compatible with COPD . MEDIASTINUM/ATIF: Thoracic aorta is of normal caliber with limited evaluation given lack of contrast . The heart is not enlarged. No evidence for mediastinal mass. No lymph nodes greater than 1cm. UPPER ABDOMEN: Hypoattenuating lesion pancreatic body measuring 1.[address] is rec ommended. OTHER: No significant other abnormality. IMPRESSION: 1. Hypoattenuating lesion pancreatic body measuring 1.[address] is recommended. 2. COPD with subpleural fibrosis.
== END | disposition home or self-care (01) ==
LOC: RADCTMAIN 14:14
PROVIDERS: ATTEND Family Medicine
DX: J44.9 Chronic obstructive pulmonary disease, unspecified (principal); J84.10 Pulmonary fibrosis, unspecified; R07.9 Chest pain, unspecified
CPT/HCPCS: 71250

== ENCOUNTER → 2023-10-02 | Outpatient (CLI) | payer MEDICARE, OTHER ==
--- NOTE | 2023-10-05 20:48 | MR ---
EXAMINATION TYPE: MR pancreas wo/w con DATE OF EXAM: 10/02/2023 6:22 PM CLINICAL INDICATION:Male, 78 years old with history of K86.9 DISEASE OF PANCREAS, UNSPECIFIED; PHH, P ancreatic mass/lesion. COMPARISON: Ultrasound 05/21/2017, CT chest 524 TECHNIQUE: Multiplanar multi-sequence imaging was performed without contrast. Post contrast imaging was performed. Post IV contrast subtraction images were also submitted for review. IV Contrast: 8 cc Gadavist FINDINGS: LOWER CHEST: No gross irregularity. ABDOMEN Liver: No evidence for hepatic steatosis or cirrhosis. Gallbladder and Bile ducts: No evidence for ductal dilation, or biliary stricture or evidence of chol edocholithiasis. The gallbladder is within normal limits. Pancreas: No ductal dilation. No evidence for solid mass. Pancreatic cystic lesion in the body of the pancreas measuring 18 x 17 mm. No mural nodularity or abnormal postcontrast enhancement. Spleen: Normal for size. Adrenal glands: Unremarkable. Kidneys: No evidence for obstructive uropathy. No suspicious renal masses. High T2 signal simple appe aring cyst on the right measuring up to 20 mm. There is a intrinsic high T1 signal cyst measuring 9 m m on the medial aspect of the mid kidney. Stomach and Bowel: No evidence for bowel wall thickening or evidence for obstruction. Scattered colon ic diverticula are present. Peritoneum: No evidence of pneumoperitoneum or free fluid. Vasculature: No aortic aneurysm. Musculoskeletal: The osseous structures appear intact. Lymph Nodes: No gross evidence for lymphadenopathy. Abdominal wall: Unremarkable. IMPRESSION: 1. Pancreatic body cyst measuring up to 18 mm. No abnormal mural thickening or abnormal postcontrast enhancement. Findings favored represent sequela prior pancreatitis and/or sidebranch intraductal pap illary mucinous neoplasm versus other. Consider follow-up imaging in one year to ensure stability. 2. Right renal Bosniak type I and type II equivalent renal cysts.
== END | disposition home or self-care (01) ==
LOC: RADMRIMAIN 16:50
PROVIDERS: ATTEND Family Medicine
DX: K86.2 Cyst of pancreas (principal); N28.1 Cyst of kidney, acquired
CPT/HCPCS: 74183; A9585

== ENCOUNTER → 2024-01-30 | Outpatient (CLI) | payer MEDICARE, OTHER ==
--- NOTE | 2024-01-30 10:25 | CT ---
EXAMINATION TYPE: CT brain lee ann ahumada DATE OF EXAM: 01/30/2024 COMPARISON: December 19, 2016 HISTORY: 78-year-old male S09.90XA, fall posterior neck pain, head injury CT DLP: 1642 mGycm Automated exposure control for dose reduction was used. Technique: Examination of the head was done in axial plane without intravenous contrast. Coronal and sagittal reconstructions performed. CT of the cervical spine was obtained in axial plane without intravenous injection of contrast mater ial. Coronal and sagittal reformatted images were obtained from the axial views for evaluation of f ractures, spinal alignment and canal. FINDINGS: Head: There is no evidence of acute intracranial hemorrhage, acute ischemic changes, mass, mass-effect, or extra-axial fluid collection. There is no effacement of cerebral sulci or basal subarachnoid cister ns. There is no hydrocephalus. There is no midline shift. Anglin-white matter distinction is preserv ed. Lacunar infarcts left basal ganglia and some moderate patchy ventricular white matter hypodensities h ave progressed from 2017. Mild bifrontal cerebral cortical volume loss is redemonstrated. A few scatt ered punctate dural calcifications, unchanged. Bilateral scattered calcifications in the carotid siph ons. Paranasal sinuses and mastoid air cells well pneumatized. Orbits and globes are intact. Cervical spine: Degenerative change right TMJ. No craniocervical junction abnormality, predental space widening, or prevertebral soft tissue swellin g. Scattered mild degenerative disc disease and facet/uncovertebral joint arthropathy throughout especia lly lower cervical spine towards the left. Trace grade 1 anterolisthesis C6-C7. Remaining alignment is maintained. No acute fracture of the cervical spine. No evident canal compromise. Prominent atherosclerotic calcifications within the left carotid bifurcation. Moderate right neuroforaminal stenosis at C3-C4. Sagittal and coronal reformatted images confirm above findings. COMBINED IMPRESSION: 1. Interval development of lacunar infarcts left basal ganglia and slight progression in the moderate patchy burden of chronic small vessel ischemic disease. No acute intracranial abnormality seen. 2. No acute fracture of the cervical spine. Mild spondylotic change with trace grade 1 anterolisthesi s C6-C7. Moderate right neural foraminal stenosis C3-C4.
== END | disposition home or self-care (01) ==
LOC: RADCTMAIN 09:27
PROVIDERS: ATTEND Family Medicine
DX: M47.812 Spondylosis without myelopathy or radiculopathy, cervical region (principal); I63.81 Other cerebral infarction due to occlusion or stenosis of small artery; M48.02 Spinal stenosis, cervical region; S09.90XA Unspecified injury of head, initial encounter; M43.12 Spondylolisthesis, cervical region; M50.30 Other cervical disc degeneration, unspecified cervical region
CPT/HCPCS: 70450; 72125

== ENCOUNTER → 2024-02-17 | Outpatient (CLI) | payer MEDICARE, OTHER ==
--- NOTE | 2024-02-17 17:43 | MR ---
EXAMINATION TYPE: MR angio head wo con DATE OF EXAM: 02/17/2024 COMPARISON: None HISTORY: Lacunar infarct, Possible brain injury TECHNIQUE: Time of flight images focusing on the [place] of [place] were performed without contrast. FINDINGS: There is occlusion of the right internal carotid artery. The [place] of [place] is intact and there is filling of the right middle cerebral circulation via the anterior communicating artery. There is no s izable aneurysm sac or vascular malformation. IMPRESSION: Complete occlusion of the right internal carotid artery as described above.
--- NOTE | 2024-02-17 17:54 | MR ---
EXAMINATION TYPE: MR brain wo/w con DATE OF EXAM: 02/17/2024 COMPARISON: None HISTORY: Lacunar infarct, Possible brain injury, TECHNIQUE: Multiplanar, multisequence images of the brain and brainstem is performed without and with IV contras t, utilizing 8 mL intravenous Gadavist . FINDINGS: On the T1-weighted sagittal images, the midline structures including the craniovertebral junction re lationships appear normal. The ventricles, basal cisterns and sulci over the convexities are mildly enlarged consistent with mil d generalized atrophy appropriate for the patient's age. There is no mass effect or shift of the midl ine structures. There are few tiny remote lacunar infarcts in the basal ganglia bilaterally. There are moderate multi focal areas of abnormal increased signal intensity in the white matter both cerebral hemispheres cons istent with chronic ischemic white matter change. On the diffusion-weighted images, there is no diffusion restriction or acute ischemic event. Following contrast administration, there is no pathological enhancement. The posterior fossa including the brainstem, fourth ventricle and cerebellar pontine angles appear no rmal. Intraorbital contents are normal and symmetric. Visualized paranasal sinuses and mastoid air cells ar e well aerated. IMPRESSION: 1. Mild age-appropriate atrophy. 2. Moderate chronic ischemic white matter change. 3. Small remote lacunar infarcts in the basal ganglia bilaterally. 4. No acute ischemic event
== END | disposition home or self-care (01) ==
LOC: RADMRIMAIN 15:49
PROVIDERS: ATTEND Family Medicine
DX: I65.21 Occlusion and stenosis of right carotid artery (principal); G31.9 Degenerative disease of nervous system, unspecified; I63.9 Cerebral infarction, unspecified
CPT/HCPCS: 70544; 70553; A9585

== ENCOUNTER → 2025-01-25 | Outpatient (CLI) | payer MEDICARE, OTHER ==
--- NOTE | 2025-01-25 23:56 | XR ---
EXAMINATION TYPE: XR KUB DATE OF EXAM: 01/25/2025 10:41 AM COMPARISON: None. CLINICAL INDICATION: Male, 79 years old with history of N20.0 N20.1 Calculus kidney ureter, TECHNIQUE: XR KUB view(s) obtained. FINDINGS: There is a normal bowel gas pattern. Psoas margins are normal. No organomegaly evident There is a 2 cm calcification over the mid left kidney IMPRESSION: 1. 2 cm left renal stone [facility], , 01/25/2025 11:53 PM
== END | disposition home or self-care (01) ==
LOC: RADXRMAIN 10:07
PROVIDERS: ATTEND Urology
DX: N20.2 Calculus of kidney with calculus of ureter (principal)
CPT/HCPCS: 74018

== ENCOUNTER → 2025-02-02 | Outpatient (CLI) | payer MEDICARE, OTHER ==
[2025-02-02 19:49] LABS: Basophils # (A) 0.09 X 10*3/uL (0.00-0.10); Basophils % (A) 1.3 %; Eosinophils # (A) 0.24 X 10*3/uL (0.04-0.35); Eosinophils % (A) 3.4 %; HCT 44.1 % (39.6-50.0); HGB 13.9 g/dL (13.0-17.0); Lymphocytes # (A) 1.89 X 10*3/uL (0.90-5.00); Lymphocytes % (A) 26.8 %; MCH 29.1 pg (27.0-32.0); MCHC 31.5 g/dL (32.0-37.0); MCV 92.5 FL (80.0-97.0); Monocytes # (A) 0.64 X 10*3/uL (0.20-1.00); Monocytes % (A) 9.1 %; NRBC Per 100 WBC 0 X 10*3/uL (0.00-0.01); Neutrophils # (A) 4.14 X 10*3/uL (1.80-7.70); Neutrophils % (A) 58.8 %; Platelet Count 242 X 10*3/uL (140-440); RBC 4.77 X 10*6/uL (4.40-5.60); RDW 15.4 % (11.5-14.5); WBC 7.04 X 10*3/uL (4.50-10.00)
[2025-02-02 20:30] LABS: Blood Urea Nitrogen 9.8 mg/dL (9.0-27.0); Calcium 9.1 mg/dL (8.7-10.3); Carbon Dioxide 26.4 mmol/L (21.6-31.8); Chloride 104 mmol/L (96-109); Glucose 134 mg/dL (70-110); Potassium 4.2 mmol/L (3.5-5.5); Sodium 141 mmol/L (135-145)
[2025-02-02 20:44] LABS: Appearance,Urine Cloudy (Clear); Bilirubin,Urine Negative (Negative); Blood,Urine Large (Negative); Color,Urine Dark Yellow (Yellow); Ketones,Urine Negative (Negative); Nitrite,Urine Negative (Negative); PH, Urine 7.5; Specific Gravity,Urine 1.014 (1.001-1.030)
[2025-02-02 20:51] LABS: Bacteria,Urine None Seen (None Seen)
== END | disposition home or self-care (01) ==
LOC: LABPAT 12:58
PROVIDERS: ATTEND Urology
DX: Z01.812 Encounter for preprocedural laboratory examination (principal); N20.0 Calculus of kidney
CPT/HCPCS: 80048; 81001; 85025; 87086

== ENCOUNTER 2025-02-10 06:57 | Day surgery (SDC) | payer MEDICARE, OTHER ==
[2025-02-08 11:30] VITALS: BMI 25.3
--- NOTE | 2025-02-09 18:34 | P.GSHP ---
History of Present Illness H&P Date: 02/09/25 History 79-year-old gentleman presents with right ureteral stone in the past. He was found to have a 2 cm left renal pelvic stone with hydronephrosis. Because of the hydronephrosis and the large stone on the left side with hydronephrosis we discussed treatment options. He comes for a percutaneous nephrostolithotomy on the left wrist complications alternatives have been discussed he has had cardiac clearance. - Constitutional Constitutional: Denies chills, Denies fever - EENT Eyes: denies blurred vision, denies pain Ears, nose, mouth and throat: Denies headache, Denies sore throat - Cardiovascular Cardiovascular: Denies chest pain, Denies shortness of breath - Respiratory Respiratory: Denies cough, Denies 7 - Gastrointestinal Gastrointestinal: Denies abdominal pain, Denies diarrhea, Denies nausea, Denies vomiting - Genitourinary (Female) Genitourinary: Denies dysuria, Denies hematuria - Genitourinary (Male) Genitourinary: Denies dysuria, Denies hematuria - Musculoskeletal Musculoskeletal: Denies myalgias - Integumentary Integumentary: Denies pruritus, Denies rash - Neurological Neurological: Denies numbness, Denies weakness - Psychiatric Psychiatric: Denies anxiety, Denies depression - Endocrine Endocrine: Denies fatigue, Denies weight change Past Medical History Past Medical History: Asthma, CVA/TIA, Diabetes Mellitus, Hyperlipidemia, Hypertension, Osteoarthritis (OA), Pneumonia, Thyroid Disorder Additional Past Medical History / Comment(s): Kidney stones, stroke 10 years ago, carotid artery disease-had 2 TIAs during R carotid surgery plaque removal and then the artery occluded with a blood clot, L carotid artery has 30% occlusion, R face/ear cellulitis, hypothyroid, generalized arthritis, chronic low back pain- hx of vertebral fracture, pericarditis in the 1970s, history of falls-fell on his head 3 months ago-CT scan showed no head/neck injury. History of Any Multi-Drug Resistant Organisms: None Reported Past Surgical History: Appendectomy, Orthopedic Surgery Additional Past Surgical History / Comment(s): R carotid endartectomy, R shoulder arthroscopy, L hand middle finger sx, colonoscopies, B/L cataract removal with lens implants. Past Anesthesia/Blood Transfusion Reactions: Previous Problems w/ Anesthesia Additional Past Anesthesia/Blood Transfusion Reaction / Comment(s): Blood pressure dropped during R carotid artery surgery-surgery was aborted and done 2 days later when pt's blood pressure stabilized. Smoking Status: Former smoker - Past Family History Mother Family Medical History: Dementia, Hypertension, Osteoarthritis (OA) Additional Family Medical History / Comment(s): Mother is 99 yrs old. Father Family Medical History: CVA/TIA, Myocardial Infarction (ID) Additional Family Medical History / Comment(s): Father had multiple CVAs and multiple MIs. He from a ID at the age of 88yrs. Medications and Allergies Home Medications Medication Instructions Recorded Confirmed Type ALPRAZolam [Xanax] 0.25 mg PO DAILY PRN 04/21/17 02/08/25 History Apixaban [Eliquis] 5 mg PO Q12H 04/21/17 02/08/25 History Aspirin EC [Ecotrin Low Dose] 81 mg PO DAILY 04/21/17 02/08/25 History DULoxetine HCL [Cymbalta] 60 mg PO QAM 04/21/17 02/08/25 History EPINEPHrine [Epipen 2-Dhaval] 0.3 mg IM ONCE PRN 04/21/17 02/08/25 History Esomeprazole Magnesium [NexIUM] 40 mg PO DAILY 04/21/17 02/08/25 History Folic Acid 0.8 mg PO DAILY 04/21/17 02/08/25 History Levothyroxine Sodium [Synthroid] 200 mcg PO DAILY 04/21/17 02/08/25 History Metoprolol Tartrate [Lopressor] 25 mg PO DAILY 04/21/17 02/08/25 History Montelukast [Singulair] 10 mg PO DAILY 04/21/17 02/08/25 History metHOTREXate sodium 15 mg PO FR 04/21/17 02/08/25 History Tamsulosin HCl [Flomax] 0.4 mg PO DAILY 05/17/17 02/08/25 History Acetaminophen Tab [Tylenol Tab] 500 mg PO Q6H PRN 02/08/25 02/08/25 History Atorvastatin [Lipitor] 80 mg PO DAILY 02/08/25 02/08/25 History Budesonide/Glycopyr/Formoterol 1 puff INHALATION BID 02/08/25 02/08/25 History [Breztri Aerosphere Inhaler] Ezetimibe [Zetia] 10 mg PO DAILY 02/08/25 02/08/25 History HYDROcodone/APAP 5-325MG [[place] 1 tab PO Q6HR PRN 02/08/25 02/08/25 History 5-325] Insulin Aspart [NovoLOG Flexpen] 4 - 8 units SQ AC-TID PRN 02/08/25 02/08/25 History sitaGLIPtin [Januvia] 100 mg PO DAILY 02/08/25 02/08/25 History Allergies Allergy/AdvReac Type Severity Reaction Status Date / Time bee venom protein (honey bee) Allergy Unknown Verified 02/08/25 11:58 etodolac Allergy itchy rash Verified 02/08/25 12:02 moxifloxacin [From Avelox] Allergy Rash/Hives Verified 02/08/25 12:00 Penicillins Allergy Rash/Hives Verified 02/08/25 12:00 lisinopril AdvReac Severe Verified 02/08/25 12:00 Decrease In Blood Pressure Medical Tape AdvReac severe Uncoded 02/08/25 12:00 bruising Results - Imaging Abdominal x-ray: report reviewed, image reviewed CT scan - abdomen: report reviewed, image reviewed CT scan - pelvis: report reviewed, image reviewed Assessment and Plan Assessment: Impression: Left renal stone, large (2 cm) with obstruction. Recommendations: Left percutaneous nephrostolithotomy
--- NOTE | 2025-02-10 07:49 | XR ---
EXAMINATION TYPE: XR KUB DATE OF EXAM: 02/10/2025 7:12 AM COMPARISON: 01/25/2025 CLINICAL INDICATION: Male, 79 years old with history of Calculus of Kidney; PHH, pain TECHNIQUE: One radiographic view of the abdomen was obtained. FINDINGS: Nonobstructive bowel gas pattern. Mild scattered stool. 2.1 cm calcification left mid abdom en. Pelvic phleboliths. IMPRESSION: Redemonstrated 2.1 cm left renal stone. [facility], Workstation: [facility], 02/10/2025 7:47 AM
[2025-02-10] MEDS: IV FLUID CONTINUATION 1,000 ML IV ONE (08:03)
[2025-02-10 08:23] LABS: Glucose,Whole Blood 144 mg/dL (70-110)
[2025-02-10] MEDS: LACTATED RINGERS 1,000 ML BAG IV STA (08:28)
[2025-02-10] MEDS: LABETALOL SYRINGE 5 MG/ML (4 ML SYR) IVP STA (08:30)
[2025-02-10] MEDS: ONDANSETRON 4 MG/2 ML VIAL IVP STA (08:31)
[2025-02-10] MEDS: DEXAMETHASONE SOD PHOSPHATE 4 MG/ML 1 ML VIAL IVP STA (08:31)
[2025-02-10] MEDS ORDERED: PROPOFOL 10 MG/ML 20 ML VIAL IV ONE (08:49)
[2025-02-10] MEDS ORDERED: LIDOCAINE 1% INJ 10MG/ML (20 ML MDV) ONE (08:49)
[2025-02-10] MEDS ORDERED: ROCURONIUM 10 MG/ML (5 ML VIAL) IV ONE (08:49)
[2025-02-10] MEDS ORDERED: GLYCOPYRROLATE 0.2 MG/ML 2 ML VIAL ONE (08:49)
[2025-02-10] MEDS ORDERED: fentaNYL (PF) 50 MCG/ML 2 ML AMP ONE (08:49)
[2025-02-10] MEDS ORDERED: SUCCINYLCHOLINE CHLORIDE 200 MG/10 ML VIAL IV ONE (08:49)
[2025-02-10] MEDS ORDERED: NEOSTIGMINE 1 MG/ML 10 ML VIAL ONE (08:49)
[2025-02-10] MEDS: IOPAMIDOL-370 100ML BTL MISCELLANE ONE (09:32)
[2025-02-10] MEDS ORDERED: ACETAMINOPHEN TAB 500 MG TAB PO PRN (10:28)
[2025-02-10] MEDS ORDERED: ALPRAZolam 0.25 MG TAB PO PRN (10:28)
[2025-02-10] MEDS ORDERED: NALOXONE 0.4 MG/ML 1 ML VIAL IV PRN (10:29)
[2025-02-10] MEDS ORDERED: ACETAMINOPHEN TAB 325 MG TAB PO PRN (10:29)
--- NOTE | 2025-02-10 10:36 | P.OP ---
Date of Procedure: 02/10/25 Preoperative Diagnosis: Left renal stone, large (2.1 cm) Postoperative Diagnosis: Same Procedure(s) Performed: Percutaneous nephrostolithotomy, large with ultrasound Anesthesia: HOWARDA Surgeon: Jason Grace Estimated Blood Loss (ml): 50 Pathology: other Condition: stable (Stone) Disposition: PACU Indications for Procedure: Patient is 79. He has a symptomatic 2.1 cm left renal pelvic stone. He comes for left percutaneous nephrostolithotomy Description of Procedure: Patient brought to the operating suite. Given a general anesthetic. On the transport gurney is placed in a frog position with a sterile prep and drape. Cystoscopy Foroblique lens and 21 [place] sheath identifies a minimally obstructing prostate. The left ureteral orifice is identified. It is somewhat difficult to intubate with the 5 [place] occluding balloon catheter this a 6 Charlie uth open-ended catheter and 035 wire is used to pass the catheter into the ureter. The catheter was passed up to the UPJ. The wire was removed. It is secured to a 16 [place] Shannon The patient placed in a prone position with care Charan and extremities. Percutaneous nephrostomy to the left middle pole calyx is administered. It will be dictated separately. The tract was dilated to 30 [place] and a working sheath is introduced into the collecting system. The stone is seen. With ultrasound is broken into tiny fragments and then the larger fragments are removed. I then looked throughout the collecting system and see a couple small fragments with the flexible scope better flushed into the renal pelvis and removed with a rigid scope. I then do fluoroscopy and there is no remaining stone. I looked throughout the collecting system and the flexible scope there is no remaining stone. A 10J nephrostomy tube was placed over the working wire and secured to the skin. The patient was awakened returned recovery in good condition. Blood loss was less than 50 mL. He tolerated the procedure well and replaced in the hospital postoperatively.
--- NOTE | 2025-02-10 10:38 | P.PCN ---
Date of Procedure: 02/10/25 Preoperative Diagnosis: Left renal stone, large (2.1 cm) Postoperative Diagnosis: Same Procedure(s) Performed: Percutaneous access to left middle pole calyx Anesthesia: HOWARDA Surgeon: Jason Grace Condition: stable Indications for Procedure: Patient has a 2.1 cm left renal pelvic stone he comes for percutaneous nephrostolithotomy Description of Procedure: The patient is on the operating table in a prone position. A ureteral occluding balloon catheters previously been placed in the proximal left ureter. After sterile prep and drape areas injected through the catheter to outline the collecting system. A middle pole calyx was identified. Small incision was made overlying the middle pole calyx. A 3 [place] Chiba needle was passed into this calyx. The upper shaper is removed and an a [place] mandrel wire was passed into the UPJ. Remove the Chiba needle and over the [place] mandrel wire I passed a 6 [place] dilating catheter. The inner catheter was removed. An 035 Super Stiff wire was passed down the ureter. Over the Super Stiff wire then passed an 8 and 10 dilating exchange catheter the aid is removed and a second wire was passed down the ureter. Then over the working wire is passed the dilating balloon and the nephrostomy tract was then dilated to 30 [place].
[2025-02-10] MEDS: hydrALAZINE HCL 20 MG/ML 1 ML VIAL IVP STA (10:46)
--- NOTE | 2025-02-10 10:58 | FL ---
EXAMINATION TYPE: FL Perc Nephrostomy New Access DATE OF EXAM: 02/10/[address] FRITZ USED C-ARM FOR A PERC NEPHRO LEFT SIDE DAP 1.48 FL 219.2 SECS 9 images are provided. [facility], Workstation: [email or web address], 02/10/2025 10:56 AM
[2025-02-10] MEDS: HYDROmorphone 0.5 MG/0.5 ML SYRINGE IVP PRN (11:15)
[2025-02-10 13:23] LABS: Glucose,Whole Blood 242 mg/dL (70-110)
[2025-02-10] MEDS: INSULIN LISPRO (HumaLOG) 100 UNIT/ML 10 mL VL SQ ONE (13:30)
[2025-02-10] MEDS: DEXTROSE 5%-0.45% NACL 1,000 ML IV SCH (13:49)
[2025-02-10] MEDS: HYDROcodone/APAP 5-325MG 1 EACH TAB PO PRN (13:55)
[2025-02-10] MEDS: HYDROmorphone PCA 10 MG/50 ML BAG IV PRN (14:41)
[2025-02-10 16:43] LABS: Glucose,Whole Blood 226 mg/dL (70-110)
[2025-02-10] MEDS ORDERED: DEXTROSE 50% SYRINGE 50 ML IVP PRN ×2 (16:50)
[2025-02-10] MEDS: INSULIN LISPRO (HumaLOG) 100 UNIT/ML 10 mL VL SQ SCH (17:34)
[2025-02-10] MEDS: SYMBICORT 160-4.5 MCG INHALER INHALATION SCH (18:16)
[2025-02-10] MEDS: ONDANSETRON 4 MG/2 ML VIAL IVP PRN (18:31)
[2025-02-10 21:09] LABS: Glucose,Whole Blood 202 mg/dL (70-110)
[2025-02-11] MEDS: MAG HYDROX/AL HYDROX/SIMETH 30 ML CUP PO PRN (05:51)
[2025-02-11 06:07] LABS: Glucose,Whole Blood 196 mg/dL (70-110)
[2025-02-11] MEDS: PANTOPRAZOLE 40 MG TABLET PO SCH (06:26)
[2025-02-11] MEDS: LEVOTHYROXINE 100 MCG TAB PO SCH (06:26)
--- NOTE | 2025-02-11 08:06 | P.DS ---
Providers Attending physician: Jason Grace Primary care physician: [facility] Course: The patient was admitted 02/10/2025 for a left percutaneous nephrostolithotomy. He underwent went this without difficulty. His postoperative course was unremarkable. His urine is clear. His pain is under control. He be discharged home today with a nephrostomy tube I will remove the urethral catheter. He will follow-up in the office next week for nephrostomy tube removal. A prescription of [place] has been given. Patient Condition at Discharge: Good Plan - Discharge Summary Discharge Rx Participant: No New Discharge Prescriptions: New HYDROcodone/APAP 5-325MG [[place] 5-325] 1 tab PO Q4HR PRN #14 tab PRN Reason: Pain No Action Apixaban [Eliquis] 5 mg PO Q12H Folic Acid 0.8 mg PO DAILY EPINEPHrine [Epipen 2-Dhaval] 0.3 mg IM ONCE PRN PRN Reason: Anaphylaxis Aspirin EC [Ecotrin Low Dose] 81 mg PO DAILY Montelukast [Singulair] 10 mg PO DAILY metHOTREXate sodium 15 mg PO FR Levothyroxine Sodium [Synthroid] 200 mcg PO DAILY Esomeprazole Magnesium [NexIUM] 40 mg PO DAILY DULoxetine HCL [Cymbalta] 60 mg PO QAM Metoprolol Tartrate [Lopressor] 25 mg PO DAILY ALPRAZolam [Xanax] 0.25 mg PO DAILY PRN PRN Reason: Anxiety/Insomnia Tamsulosin HCl [Flomax] 0.4 mg PO DAILY Acetaminophen Tab [Tylenol Tab] 500 mg PO Q6H PRN PRN Reason: Pain sitaGLIPtin [Januvia] 100 mg PO DAILY Insulin Aspart [NovoLOG Flexpen] 4 - 8 units SQ AC-TID PRN PRN Reason: sliding scale HYDROcodone/APAP 5-325MG [[place] 5-325] 1 tab PO Q6HR PRN PRN Reason: Pain Atorvastatin [Lipitor] 80 mg PO DAILY Ezetimibe [Zetia] 10 mg PO DAILY Budesonide/Glycopyr/Formoterol [Breztri Aerosphere Inhaler] 1 puff INHALATION BID Discharge Medication List ALPRAZolam [Xanax] 0.25 mg PO DAILY PRN 04/21/17 [History] Apixaban [Eliquis] 5 mg PO Q12H 04/21/17 [History] Aspirin EC [Ecotrin Low Dose] 81 mg PO DAILY 04/21/17 [History] DULoxetine HCL [Cymbalta] 60 mg PO QAM 04/21/17 [History] EPINEPHrine [Epipen 2-Dhaval] 0.3 mg IM ONCE PRN 04/21/17 [History] Esomeprazole Magnesium [NexIUM] 40 mg PO DAILY 04/21/17 [History] Folic Acid 0.8 mg PO DAILY 04/21/17 [History] Levothyroxine Sodium [Synthroid] 200 mcg PO DAILY 04/21/17 [History] Metoprolol Tartrate [Lopressor] 25 mg PO DAILY 04/21/17 [History] Montelukast [Singulair] 10 mg PO DAILY 04/21/17 [History] metHOTREXate sodium 15 mg PO FR 04/21/17 [History] Tamsulosin HCl [Flomax] 0.4 mg PO DAILY 05/17/17 [History] Acetaminophen Tab [Tylenol Tab] 500 mg PO Q6H PRN 02/08/25 [History] Atorvastatin [Lipitor] 80 mg PO DAILY 02/08/25 [History] Budesonide/Glycopyr/Formoterol [Breztri Aerosphere Inhaler] 1 puff INHALATION BID 02/08/25 [History] Ezetimibe [Zetia] 10 mg PO DAILY 02/08/25 [History] HYDROcodone/APAP 5-325MG [[place] 5-325] 1 tab PO Q6HR PRN 02/08/25 [History] Insulin Aspart [NovoLOG Flexpen] 4 - 8 units SQ AC-TID PRN 02/08/25 [History] sitaGLIPtin [Januvia] 100 mg PO DAILY 02/08/25 [History] HYDROcodone/APAP 5-325MG [[place] 5-325] 1 tab PO Q4HR PRN #14 tab 02/11/25 [Rx] Follow up Appointment(s)/Referral(s): Jason Grace MD [STAFF PHYSICIAN] - 02/17/25 (Home with nephrostomy tube please instruct.) Discharge Disposition: HOME SELF-CARE
[2025-02-11 08:11] VITALS: BP 155/79; PULSE 82; RESP 17; TEMP 98.6
[2025-02-11] MEDS: DULoxetine HCL 60 MG CAPSULE.DR PO SCH (08:52)
[2025-02-11] MEDS: EZETIMIBE 10 MG TAB PO SCH (08:52)
[2025-02-11] MEDS: TAMSULOSIN 0.4 MG CAP.ER.24H PO SCH (08:52)
[2025-02-11] MEDS: METOPROLOL TARTRATE 25 MG TAB PO SCH (08:52)
[2025-02-11] MEDS: LINAGLIPTIN 5 MG TABLET PO SCH (08:52)
[2025-02-11] MEDS: FOLIC ACID 1 MG TAB PO SCH (08:52)
[2025-02-11] MEDS: ATORVASTATIN 80 MG TAB PO SCH (08:52)
[2025-02-11] MEDS: MONTELUKAST 10 MG TAB PO SCH (08:52)
[2025-02-11] MEDS: TIOTROPIUM 2.5 MCG INHALER INHALATION SCH (10:15)
== END 2025-02-11 11:55 | disposition home or self-care (01) ==
LOC: OR 06:57 → 4SSUR 10:19 → OR 02-11 11:55
PROVIDERS: ATTEND Urology
DX: N13.2 Hydronephrosis with renal and ureteral calculous obstruction (principal); J45.909 Unspecified asthma, uncomplicated; I10 Essential (primary) hypertension; E78.5 Hyperlipidemia, unspecified; M19.90 Unspecified osteoarthritis, unspecified site; E11.9 Type 2 diabetes mellitus without complications; Z90.49 Acquired absence of other specified parts of digestive tract; Z87.891 Personal history of nicotine dependence; Z86.73 Personal history of transient ischemic attack (TIA), and cerebral infarction without residual deficits; Z82.49 Family history of ischemic heart disease and other diseases of the circulatory system; Z82.61 Family history of arthritis; Z82.3 Family history of stroke; Z88.8 Allergy status to other drugs, medicaments and biological substances; Z79.890 Hormone replacement therapy; Z79.82 Long term (current) use of aspirin; Z79.02 Long term (current) use of antithrombotics/antiplatelets; Z79.84 Long term (current) use of oral hypoglycemic drugs; Z79.01 Long term (current) use of anticoagulants; Z79.899 Other long term (current) drug therapy
CPT/HCPCS: 94640; 82365; 83036; 50432; 74018; 50080; C1769 ×3; C2628; C1758; C1894; J0360; J1100; J0690; J2405; J1171 ×2; Q9967; J1920